=== PATIENT | male | born 1940 | race Caucasian/White ===

== ENCOUNTER 2018-03-20 02:00 | Inpatient (IN) ==
[2018-03-20] MEDS ORDERED: *HR* HYDROcodone/Acet 5/325 mg TABLET PO ONE (03:15)
[2018-03-20] MEDS ORDERED: Ketorolac 15 MG/ML VIAL IVP ONE (03:16)
[2018-03-20] MEDS ORDERED: Orphenadrine 60 MG/2 ML VIAL IV ONE (03:16)
--- NOTE | 2018-03-20 03:17 | Emergency Department Note ---
Disposition Clinical Impression: Intractable low back pain, Lumbar radiculopathy, Bony sclerosis Lumbar canal stenosis Qualifiers: Neurogenic claudication status: unspecified Qualified Code(s): M48.061 - Spinal stenosis, lumbar region without neurogenic claudication Disposition: Admitted As Inpatient Condition: Fair Referrals: Buzz Sanchez MD [Primary Care Provider] - Forms: ED Satisfaction Letter Time of Disposition: 05:35 Back Pain HPI - General Chief Complaint: ED Back Pain/Injury Stated Complaint: rt hip pain down leg Time Seen by Provider: 03/20/18 03:07 Source: patient Limitations: no limitations Nursing Notes Reviewed: Yes Vital Signs Reviewed: Yes - History of Present Illness HPI Narrative: Patient presents to the ED the chief complaint of H medical back pain. Patient states that about 2 days ago he got out of his car to go into work and felt a pain in his right lower back. He has sharp stabbing pains that radiate all the way down into his right foot. No numbness or weakness. No fever. No history of IV drug use. No history of cancer. No chills, chest pain, shortness of breath, abdominal pain, nausea, vomiting, diarrhea, loss of bowel or bladder function, urinary incontinence or retention, rash. States he had sciatica on his left side several years ago and this. This was similar, but is worse. No injury. States he has been unable to sleep. - Related Data Home Medications Medication Instructions Recorded Confirmed Atorvastatin Calcium [Lipitor] 10/05/15 Lisinopril-HCTZ 20-12.5 10/05/15 Multivitamin 10/05/15 10/05/15 glyBURIDE [GlyBURIDE] 10/05/15 Previous Rx's Medication Instructions Recorded Silver Sulfadiazine [Silvadene] 25 gm TP BID #20 cream..g. 08/01/16 Allergies Allergy/AdvReac Type Severity Reaction Status Date / Time metformin AdvReac See Verified 10/05/15 10:41 Comments Review of Systems: As reviewed in the HPI. All other systems reviewed are negative or normal. Past Medical History - Past Medical History Attestation: Yes The following information was validated with the patient. Source: patient Medical history: Reports: diabetes, hypertension Psychiatric history: Reports: no psych history - Social History Smoking Status: Never smoker Smokeless Tobacco Status: No Alcohol use: Reports: none Drug use: Reports: none Physical Exam CONSTITUTIONAL: [well appearing in no acute distress but does appear uncomfortable and in pain] SKIN: [Warm, dry, and intact without rash] EYES: [extraocular movements are grossly intact, clear conjunctiva] HENT: [Normocephalic, atraumatic, moist mucus membranes] NECK: [no obvious swelling, normal range of motion] PULMONARY: [normal chest rise and fall, no respiratory distress or stridor CARDIOVASCULAR: [regular rate, distal extremities are warm and well perfused] GASTROINSTESTINAL: [nondistended, non-tender] GENITOURINARY: [deferred] NEUROLOGIC: [normal speech, moves all extremities, high sensitivity neuro exam, normal. However, patient does have quite significant pain with plantar flexion of the right lower extremity, has right PSIS tenderness that does reproduce his symptoms, full range of motion, but is painful. Very antalgic gait] MUSCULOSKELETAL: [no gross deformities, atraumatic] PSYCHIATRIC: [normal mood and affect] - General Limitations: no limitations General appearance: alert, in no apparent distress Course Course Narrative: Patient presenting with a 48-hour history of atraumatic low back pain. We will get a CT of his lumbar spine and medicate to evaluate for possible malignancy. - Reevaluation(s) Reevaluation #1: CT shows sclerotic foci exactly where patient is tender. Certainly raising concern over cancer. Patient given pain medication with zero relief. Will admit for intractable low back pain, pain management consult and further oncologic workup. Accepted to the hospitalist service. Added on CBC/BMP for admission. Time: 05:33 Vital Signs Temperature 98.0 F 03/20/18 02:03 Pulse Rate 100 03/20/18 02:03 Respiratory Rate 16 03/20/18 02:03 Blood Pressure 165/87 03/20/18 02:03 O2 Sat by Pulse Oximetry 97 03/20/18 02:03 Temperature 98.0 F 03/20/18 02:03 Pulse Rate 100 03/20/18 02:03 Respiratory Rate 16 03/20/18 02:03 Blood Pressure 165/87 03/20/18 02:03 O2 Sat by Pulse Oximetry 97 03/20/18 02:03 Oxygen Delivery Oxygen Delivery Room Air
[2018-03-20] MEDS ORDERED: *HR* HYDROmorphone (PF) 1 MG/ML SYRINGE IVP ONE (05:21)
[2018-03-20] MEDS ORDERED: Dextrose Gel 15 GM/37.5 ML TUBE PO PRN ×3 (05:44→09:00)
[2018-03-20 05:56] LABS: Basophils # 0.1 K/mcL (0.0-0.2); Basophils % 0.5 %; Eosinophils % 0.1 %; Hematocrit 43.7 % (37.5-50.1); Hemoglobin 15.8 g/dL (12.9-16.9); Immature Granulocytes % 0.5 % (0-4); Lymphocytes # 1.2 K/mcL (0.6-4.6); Lymphocytes % 10.4 %; Mean Corpuscular HGB Conc 36.2 g/dL (31.6-35.5); Mean Corpuscular Hemoglobin 30.3 pg (28.0-33.3); Mean Corpuscular Volume 83.9 fL (83.0-100.0); Mean Platelet Volume 8.2 fL (9.4-12.4); Monocytes # 0.9 K/mcL (0.0-1.3); Neutrophils # 8.9 K/mcL (1.6-8.9); Platelet Count 198 K/mcL (140-400); Red Blood Count 5.21 M/mcL (4.19-5.50); Red Cell Distribution Width 12.8 % (11.5-14.5); Segmented Neutrophils % 80.5 %
--- NOTE | 2018-03-20 05:59 | Emergency Department Note ---
Disposition Clinical Impression: Intractable low back pain, Lumbar radiculopathy, Bony sclerosis Lumbar canal stenosis Qualifiers: Neurogenic claudication status: unspecified Qualified Code(s): M48.061 - Spinal stenosis, lumbar region without neurogenic claudication Disposition: Admitted As Inpatient Condition: Fair General Adult HPI - General Chief complaint: ED Back Pain/Injury Stated complaint: rt hip pain down leg Time Seen by Provider: 03/20/18 03:07 Source: patient Limitations: no limitations Nursing Notes Reviewed: Yes Vital Signs Reviewed: Yes - History of Present Illness Pain Scale: 10 - Related Data Home Medications Medication Instructions Recorded Confirmed Atorvastatin Calcium [Lipitor] 10/05/15 Lisinopril-HCTZ 20-12.5 10/05/15 Multivitamin 10/05/15 10/05/15 glyBURIDE [GlyBURIDE] 10/05/15 Previous Rx's Medication Instructions Recorded Silver Sulfadiazine [Silvadene] 25 gm TP BID #20 cream..g. 08/01/16 Allergies Allergy/AdvReac Type Severity Reaction Status Date / Time metformin AdvReac See Verified 10/05/15 10:41 Comments Past Medical History - Past Medical History Medical history: Reports: diabetes, hypertension Psychiatric history: Reports: no psych history - Social History Smoking Status: Never smoker Smokeless Tobacco Status: No Alcohol use: Reports: none Drug use: Reports: none Physical Exam - General Limitations: no limitations General appearance: alert, in no apparent distress Course Vital Signs Temperature 98.0 F 03/20/18 02:03 Pulse Rate 100 03/20/18 02:03 Respiratory Rate 16 03/20/18 02:03 Blood Pressure 165/87 03/20/18 02:03 O2 Sat by Pulse Oximetry 97 03/20/18 02:03 Temperature 98.0 F 03/20/18 02:03 Pulse Rate 100 03/20/18 02:03 Respiratory Rate 16 03/20/18 02:03 Blood Pressure 165/87 03/20/18 02:03 O2 Sat by Pulse Oximetry 97 03/20/18 02:03 Oxygen Delivery Oxygen Delivery Room Air Medical Decision Making - Radiology Data Radiology results reviewed: Yes I reviewed the patient's radiology results. Lumbar Spine CT 03/20/18 03:15 IMPRESSION: 1. Moderate spondylosis, most pronounced at L4-L5. 2. Pelvic sclerotic foci are nonspecific though metastatic disease is one consideration. D/ / Remigio Quarles MD / Remigio Quarles MD Interpreting Provider: Remigio Quarles MD Attestation Statement - Attestation Attestation: I, Kentrell Salvador MD, personally evaluated this patient and discussed their management with the resident physician. I reviewed the resident's note and agree with the documented findings, medical decision making, and plan of care. 78-year-old male presents to the emergency department with a complaint of right lower back pain in the SI joint region which radiates down the right leg to the mid right syed. Symptoms started about 3-4 days ago and have gotten progressively worse. He denies any fall or injury. He has been able to ambulate. No incontinence of stool or urine. No urinary retention. No fever. No abdominal pain. On examination patient is a well-developed well-nourished well-appearing elderly male in no acute distress. He is alert and oriented 3. There is no cyanosis or diaphoresis. Breath sounds are clear and equal bilaterally. Heart regular rate and rhythm. Abdomen soft and nontender with normal bowel sounds. No tenderness over the lumbar spine. There is tenderness over the right SI joint region. No gross focal neurological deficits. CT of the lumbar spine: As above with diffuse disc bulging seen at multiple levels, most pronounced at L4-L5 where there is also central stenosis. Patient received Toradol, Norflex, Percocet, and lidocaine patch while here in the emergency department. He had no improvement in his symptoms with this treatment. The hospitalist, Dr. Leonard, was consulted and accepted admission of the patient for intractable pain.
[2018-03-20] MEDS ORDERED: Insulin LISPRO 300 UNITS/3 ML VIAL SQ SCH (06:00)
[2018-03-20 06:10] LABS: BUN/Creatinine Ratio 17 (6-26); Blood Urea Nitrogen 11 mg/dL (8-23); Calcium 9.5 mg/dL (8.6-10.3); Carbon Dioxide 26 mEq/L (23-29); Chloride 90 mEq/L (98-107); Glucose 183 mg/dL (70-105); Osmolality,Calculated 262 (280-300); Potassium 3.7 mEq/L (3.5-5.1); Sodium 124 mEq/L (136-145); eGFR For Non-African Americans > 60 (> 60)
--- NOTE | 2018-03-20 06:12 | Internal Med History&Physical ---
Date of Encounter: 03/20/18 Time of Encounter: 06:10 Internal Medicine - H&P: HPI Chief complaint: Lower back pain Admitted From: Home Plans for Post Hospital Care: Home History of present illness: Mr. Clark is a 78 year old male with hypertension and diabetes was suffered from lumbago on the past presenting with acute onset right sided lower back pain the commenced yesterday all trying to get out of the car. He describes the pain as sharp and shooting down the side of his leg going towards his mid tibial region and has caused significant ambulatory difficulty. He denies paresthesias and focal weakness. He reports a history of prostate cancer for which his prostate was removed many years ago. No chills, chest pain, shortness of breath, abdominal pain, nausea, vomiting, diarrhea, loss of bowel or bladder function, urinary incontinence or retention, rash. States he had sciatica on his left side several years ago and this. This was similar, but is worse. No injury. States he has been unable to sleep. Past Med Surg Social Fam HX - Past Medical History Medical history: diabetes, hypertension Psychiatric history: no psych history - Social History Smoking Status: Never smoker Smokeless Tobacco Status: No Alcohol use: none Drug use: none Internal Medicine - H&P: Meds Atorvastatin Calcium [Lipitor] 10/05/15 [History] Lisinopril-HCTZ 20-12.5 10/05/15 [History] Multivitamin 10/05/15 [History] glyBURIDE [GlyBURIDE] 10/05/15 [History] Silver Sulfadiazine [Silvadene] 25 gm TP BID #20 cream..g. 08/01/16 [Rx] 3 Allergy/AdvReac Type Severity Reaction Status Date / Time metformin AdvReac See Verified 10/05/15 10:41 Comments All Systems PM: A 10-system review of systems was performed and is negative for pertinent findings except as documented above in the HPI. - Constitutional Vitals: Temp Pulse Resp BP Pulse Ox 98.0 F 100 16 161/99 97 03/20/18 02:03 03/20/18 02:03 03/20/18 05:48 03/20/18 05:48 03/20/18 02:03 Exam: Vitals: Reviewed and seen to be within normal limits General: Well-developed male sitting comfortably in bed in no acute distress Skin: No ulcers or lesions. HEENT: Moist mucous membranes. No conjunctivae pallor. Neck: No lymphadenopathy. No JVD. No carotid bruits. No palpable thyroid. Chest: Normal thoracic expansion. Normal breath sounds. Clear to auscultation. Heart: Normal S1 & S2; rhythmic. No rubs or murmurs. Abdomen: Non-distended, soft and non-tender to palpation. Extremities: No clubbing, cyanosis or edema. No calf tenderness. Normal distal pulses. Lasegue's & Braggard's sign negative on left and right sides. Focal tenderness on palpation on the left sacroiliac region. Neurological: Awake, alert and oriented to person, place and time. No focal deficits. Psych: Affect appropriate. Internal Med - H&P Results - Labs CBC & Chem 7: 03/20/18 05:41 03/20/18 05:41 Labs: Short CBC 03/20/18 Range/Units 05:41 WBC 11.0 (4.3-11.1) K/mcL Hgb 15.8 (12.9-16.9) g/dL Hct 43.7 (37.5-50.1) % Plt Count 198 (140-400) K/mcL Neutrophils # 8.9 (1.6-8.9) K/mcL BMP 03/20/18 05:41 Sodium 124 L Potassium 3.7 Chloride 90 L Carbon Dioxide 26 BUN 11 Creatinine 0.63 L Glucose 183 H Calcium 9.5 - Assessment and plan (1) Intractable low back pain Current Visit: Yes Status: Acute Assessment and plan: Seen to have retrolisthesis at all lumbar levels, round faint sclerotic foci are identified in the sacrum and right iliac bone, degenerative changes and diffuse disc bulging is seen at multiple levels, most pronounced at L4-L5 where there is also central stenosis. These areas correspond with the nerve territory in which he describes the pain. Working diagnosis is sciatica as the cause of his intractable back pain for which reason he is admitted for pain control. -Will place on NSAIDs and opiates as needed. -Given identification of multiple sclerotic foci and reported history of prostate malignancy, will check a screening PSA to ensure there is no residual activity that may be attributable to this. -Physical therapy consultation requested. (2) Hyponatremia Current Visit: Yes Status: Acute Assessment and plan: Possibly associated to diuretic use and compounded by poor oral intake. -Will check urine studies and resuscitate with Iv NS. (3) Hypochloremia Current Visit: Yes Status: Acute Assessment and plan: Likely due to thiazide diuretic coupled with poor oral intake. Will administer IV NS and recheck values. (4) Diabetes Current Visit: Yes Status: Chronic Assessment and plan: Oral agents on hold during hospitalization. Will have q6hr accuchecks and insulin sliding scale. Diabetic diet ordered. Qualifiers: Diabetes mellitus type: type 2 Diabetes mellitus nursing home insulin use: without superintendent container terminal use Diabetes mellitus complication status: without complication Qualified Code(s): E11.9 - Type 2 diabetes mellitus without complications (5) Hypertension Current Visit: Yes Status: Chronic Assessment and plan: Well controlled. Continue Lisinopril. HCTZ on hold for now due to hyponatremia and hypochloremia. Qualifiers: Hypertension type: essential hypertension Qualified Code(s): I10 - Essential (primary) hypertension (6) DVT prophylaxis Current Visit: Yes Status: Acute Assessment and plan: SubQ heparin ordered. - Time Spent With Patient Total time spent is greater than 50% in coordination of care (as documented) at patient's floor/unit and/or counseling patient: 25 - 35 minutes
[2018-03-20] MEDS ORDERED: *HR* OxyCODONE ER (12 HR) 10 MG TABLET PO SCH ×2 (08:00)
[2018-03-20] MEDS ORDERED: D5% in Water 1,000 ML IVC PRN (09:00)
[2018-03-20] MEDS ORDERED: Lisinopril-HCTZ 20-12.5mg TABLET PO SCH (09:00)
[2018-03-20] MEDS ORDERED: *HR* Dextrose 50 % in Water (Syg) 50 ML SYRINGE IVP PRN (09:00)
[2018-03-20] MEDS: Multivit/Ca/Min/Fe/FA 1 TAB TABLET PO SCH (09:42)
[2018-03-20] MEDS: Lisinopril 20 MG TABLET PO SCH (09:43)
[2018-03-20] MEDS: *HR* Heparin 5,000 UNIT/ML VIAL SQ SCH ×3 (09:46→21:01)
--- NOTE | 2018-03-20 10:09 | Event Note ---
Date of Encounter: 03/20/18 Time of Encounter: 08:00 I examined this patient and my medical decision-making was reviewed with the Resident Physician. I agree with the documented findings, disposition and treatment plan as described with any changes as documented below. Patient continues to have low back pain although it is somewhat improved compared to yesterday. It radiates down his right leg. No focal weakness or numbness. No bowel or bladder incontinence. Exam: General appearance: Present: cooperative, A&O X 3, , answers questions appropriately - Neck Neck exam general surgery: Present: supple, trachea midline. Absent: lymphadenopathy - Respiratory Respiratory exam: Present: Breath sounds are normal Absent: accessory muscle use, rales, rhonchi - Cardiovascular Cardiovascular exam: Present: RRR, +S1, +S2. Absent: diastolic murmur, gallop, rubs, systolic murmur - GI/Abdominal GI/Abdominal exam: Present: normal bowel sounds, soft, no peritoneal signs. Absent: distended, tenderness - Back exam: Tenderness over the lower lumbar spine and right paraspinal muscles - Extremities Exam Extremities exam: Present: warm, radial pulses palpable and symmetrical. Absent : calf tenderness, cyanotic, pedal edema - Neurological Exam Neurological exam: Present: alert, oriented X3, no focal deficits. Absent: facial droop, speech deficit (1) Intractable low back pain Current Visit: Yes Status: Acute Assessment and plan: Continue supportive care. PT OT ordered. Pain control. (2) Hyponatremia Current Visit: Yes Status: Acute Assessment and plan: Continue IV hydration. Recheck sodium levels. (3) Hypochloremia Current Visit: Yes Status: Acute Assessment and plan: Continue to hold thiazide diuretic. Recheck basic panel later today. (4) Diabetes Current Visit: Yes Status: Chronic Assessment and plan: Monitor blood sugars. Continue sliding scale and diabetic diet. Qualifiers: Diabetes mellitus type: type 2 Diabetes mellitus residential insulin use: without buttermilk drier operator use Diabetes mellitus complication status: without complication Qualified Code(s): E11.9 - Type 2 diabetes mellitus without complications (5) Hypertension Current Visit: Yes Status: Chronic Assessment and plan: Holding hydrochlorothiazide. Continuing lisinopril. Qualifiers: Hypertension type: essential hypertension Qualified Code(s): I10 - Essential (primary) hypertension (6) DVT prophylaxis Current Visit: Yes Status: Acute Assessment and plan: On subcutaneous heparin
[2018-03-20] MEDS: 0.9 % Sodium Chloride 1,000 ML IVC SCH ×2 (11:08→21:04)
[2018-03-20] MEDS: Insulin LISPRO 300 UNITS/3 ML VIAL SQ SCH ×3 (12:24→21:11)
[2018-03-20 12:27] LABS: BUN/Creatinine Ratio 17 (6-26); Blood Urea Nitrogen 13 mg/dL (8-23); Calcium 9.3 mg/dL (8.6-10.3); Carbon Dioxide 22 mEq/L (23-29); Chloride 90 mEq/L (98-107); Glucose 267 mg/dL (70-105); Osmolality,Calculated 265 (280-300); Sodium 123 mEq/L (136-145); eGFR For Non-African Americans > 60 (> 60)
[2018-03-20] MEDS: Ketorolac 15 MG/ML VIAL IVP PRN ×2 (14:22→21:01)
--- NOTE | 2018-03-20 15:05 | Internal Med Progress Note ---
Date of Encounter: 03/20/18 Time of Encounter: 10:30 - Assessment and plan (1) Intractable low back pain Current Visit: Yes Status: Acute Assessment and plan: Patient has no any bony tenderness and paravertebral muscle tenderness. He is improving with Muscle relaxant and NSAID Now pain is 5-6/10 , better than before We are monitoring closely . (2) Diabetes Current Visit: Yes Status: Chronic Assessment and plan: His latest blood sugar is 183 Hb1AC ordered We are monitoring his blood sugar He is on Insulin human Lispro Qualifiers: Diabetes mellitus type: type 2 Diabetes mellitus [facility] insulin use: without long haul truck driver use Diabetes mellitus complication status: without complication Qualified Code(s): E11.9 - Type 2 diabetes mellitus without complications (3) Hypertension Current Visit: Yes Status: Chronic Assessment and plan: We are continuously monitoring his blood pressure His last BP record : 154/84 He is on Lisinopril 20 mg Qualifiers: Hypertension type: essential hypertension Qualified Code(s): I10 - Essential (primary) hypertension (4) Hyponatremia Current Visit: Yes Status: Acute Assessment and plan: He on normal saline infusion Latest serum Na+ 124 We will be monitoring his Na+ daily (5) Bony sclerosis Current Visit: Yes Status: Acute Assessment and plan: He has incidental finding of neto sclerosis in sacrum and Pelvis/ right Ilium He is a case of Ca prostate and removed prostate a few years back. His current PSA level is 4 He will be advised to review with PCP and/or oncologist in outpatient follow up. - Subjective Interval history: This is the 1st day of admission.A 78 year old male with HTN and DM-2 was presented with with acute onset right sided lower back pain since last 2-3 days and aggravated since yesterday . He developed symptom when He was trying to come out of his car . He describes the pain as sharp and shooting down the side of his leg going towards his mid tibial region and has caused significant ambulatory difficulty. He denies paresthesias and focal weakness. He reports a history of prostate cancer for which his prostate was removed many years ago. He denies chills,fever chest pain, shortness of breath, abdominal pain, nausea, vomiting, diarrhea, loss of bowel or bladder function,saddle area anaesthesia urinary incontinence or retention, rash. He states that he had sciatica on his left side several years ago and he also had same problem in his right leg almost 2 years back , but got better with out much trouble . This was similar, but is worse. He denies any injury or fall. He States he has been unable to sleep due to pain. - Constitutional Vitals: Temp Pulse Resp BP Pulse Ox 97.6 F 80 16 154/85 96 03/20/18 10:16 03/20/18 10:16 03/20/18 10:16 03/20/18 10:16 03/20/18 10:16 - Head Head exam: Present: normal inspection, normocephalic - Respiratory Additional comments: Normal thoracic expansion. Normal breath sounds. Clear to auscultation. - Cardiovascular Additional comments: Normal S1 & S2; rhythmic. No rubs or murmurs. - GI/Abdominal Additional comments: Non-distended, soft and non-tender to palpation., no organomegaly - Back Exam Additional comments: He has no any tenderness in lumbar and thoracic vertebra, no paravertebral muscle tenderness , SLRT negative both side , sensation intact, ankle and knee reflex normal both side - Psychiatric Additional comments: Awake, alert and oriented to person, place and time. No focal deficits. Internal Medicine: Result - Labs CBC & Chem 7: 03/20/18 05:41 03/20/18 15:09 Labs: BMP 03/20/18 11:03 Sodium 123 L Potassium 4.0 Chloride 90 L Carbon Dioxide 22 L BUN 13 Creatinine 0.77 Glucose 267 H Calcium 9.3 Consult Discharge Plan - Plan Referrals: Buzz Sanchez MD [Primary Care Provider] -
[2018-03-20 15:32] LABS: Estimated Average Glucose 160 mg/dl; Hemoglobin A1C 7.2 %
[2018-03-20] MEDS: *HR* OxyCODONE/APAP 5/325 TABLET PO PRN ×2 (16:58→21:00)
[2018-03-20] MEDS: Amoxicillin 500 MG CAPSULE PO SCH (21:02)
[2018-03-21] MEDS: Amoxicillin 500 MG CAPSULE PO SCH ×3 (05:07→21:12)
[2018-03-21] MEDS: *HR* OxyCODONE/APAP 5/325 TABLET PO PRN ×3 (05:11→18:16)
[2018-03-21] MEDS: *HR* Heparin 5,000 UNIT/ML VIAL SQ SCH ×3 (05:15→21:12)
[2018-03-21 07:17] LABS: BUN/Creatinine Ratio 22 (6-26); Blood Urea Nitrogen 17 mg/dL (8-23); Calcium 9.3 mg/dL (8.6-10.3); Carbon Dioxide 29 mEq/L (23-29); Chloride 99 mEq/L (98-107); Glucose 151 mg/dL (70-105); Osmolality,Calculated 276 (280-300); Potassium 4.7 mEq/L (3.5-5.1); Sodium 131 mEq/L (136-145); eGFR For Non-African Americans > 60 (> 60)
[2018-03-21] MEDS: Insulin LISPRO 300 UNITS/3 ML VIAL SQ SCH ×4 (07:33→20:59)
[2018-03-21] MEDS: Multivit/Ca/Min/Fe/FA 1 TAB TABLET PO SCH (09:19)
[2018-03-21] MEDS: Lisinopril 20 MG TABLET PO SCH (09:19)
--- NOTE | 2018-03-21 10:22 | Event Note ---
Date of Encounter: 03/21/18 Time of Encounter: 10:18 78 y/o Male with hx of prostate cancer admitted for sharp right LE pain for one week underwent CT lumbar spine showing two sclerotic lesion, one is sacrum and one in left iliac bone. Patient PSA is also elevated at 4.8 . Due to this primary team called Oncology for recommendations. Patient reports he had full resection of prostate in 2000 at [facility] by urologist. Since then he has not had recurrence. He reports bone pain in his right lower extremity at the mid tibia. Xray of right lower extremity was normal. He reports 2-3 pound weight loss in last 5 months. He denies any other hx of cancer, or family hx of cancer. I talked with Dr. Nugent who stated there is concern for metastic prostate cancer and patient will get a bone scan before discharge and will be setup for outpatient ct guided biopsy of the sclerotic lesion. Patient will also have appointment with Dr. Nugent next week.
[2018-03-21] MEDS ORDERED: Ketorolac 15 MG/ML VIAL IVP PRN (11:56)
--- NOTE | 2018-03-21 14:45 | Discharge Summary ---
- NOTES TO OUTPATIENT PROVIDER Notes to Outpatient Provider: Patient initially was hospitalized here for acute on chronic low back pain when he tried to get out of his car. CT scan of the lumbar spine was done in the ER which showed moderate spondylosis. Patient also had pelvic sclerotic foci. He was treated symptomatically for his back pain and was evaluated by physical therapy and recommended outpatient PT. Patient was also found to be hyponatremic and dehydrated and was given IV fluids with improvement in his sodium levels. He does take lisinopril with hydrochlorothiazide at home. Recommend stopping hydrochlorothiazide at this time. I discussed his case with oncology and PSA was done which was elevated. Patient has a history of prostate cancer and had prostatectomy before. As such there is concern for recurrence of malignancy. Oncology recommended a bone scan and CT guided biopsy which have been scheduled for him as outpatient. At this time he is clinically stable for discharge back home. He will follow up with his primary care provider and [facility] for further management. Date of Encounter: 03/21/18 Time of Encounter: 15:08 - Discharge Diagnosis (1) Intractable low back pain Priority: Primary Status: Acute (2) Bony sclerosis Priority: Secondary Status: Acute (3) Hypertension Priority: Secondary Status: Chronic Qualifiers: Hypertension type: essential hypertension Qualified Code(s): I10 - Essential (primary) hypertension (4) Diabetes Priority: Secondary Status: Chronic Qualifiers: Diabetes mellitus type: type 2 Diabetes mellitus fdc insulin use: without extermination supervisor use Diabetes mellitus complication status: without complication Qualified Code(s): E11.9 - Type 2 diabetes mellitus without complications (5) Hyponatremia Priority: Secondary Status: Acute Hospital course: Mr. Clark is a 78 year old male Patient with history of prostate cancer status post prostatectomy and chronic low back pain, diabetes initially was hospitalized here for acute on chronic low back pain when he tried to get out of his car. CT scan of the lumbar spine was done in the ER which showed moderate spondylosis. Patient also had pelvic sclerotic foci. He was treated symptomatically for his back pain and was evaluated by physical therapy and recommended outpatient PT. Patient was also found to be hyponatremic and dehydrated and was given IV fluids with improvement in his sodium levels. He does take lisinopril with hydrochlorothiazide at home. Recommend stopping hydrochlorothiazide at this time. I discussed his case with oncology and PSA was done which was elevated. Patient has a history of prostate cancer and had prostatectomy before. As such there is concern for recurrence of malignancy. Oncology recommended a bone scan and CT guided biopsy which have been scheduled for him as outpatient. At this time he is clinically stable for discharge back home. He will follow up with his primary care provider and [facility] for further management. Discharge discussed with: patient, family, nurse, social work, case management, design studio consultant - Time Spent with Patient Total time spent providing and/or coordinating discharge services: Greater than 30 minutes (35 min) - Discharge Medications Prescriptions: OxyCODONE/APAP 5/325 [Percocet 5/325 MG] 1 each PO Q6HR PRN 5 Days #14 tablet PRN Reason: Severe Pain Cyclobenzaprine [Flexeril] 10 mg PO TID #20 tablet Lisinopril [Zestril] 20 mg PO DAILY #30 tablet Home Medications: Atorvastatin [Lipitor] 10 mg PO HS 03/20/18 [History] glyBURIDE [GlyBURIDE] 2.5 mg PO BID 03/20/18 [History] Amoxicillin [Amoxil] 500 mg PO Q8H capsule 03/21/18 [Rx] Cyclobenzaprine [Flexeril] 10 mg PO TID #20 tablet 03/21/18 [Rx] Lisinopril [Zestril] 20 mg PO DAILY #30 tablet 03/21/18 [Rx] OxyCODONE/APAP 5/325 [Percocet 5/325 MG] 1 each PO Q6HR PRN 5 Days #14 tablet [Rx] Allergies/Adverse Reactions: 3 Allergy/AdvReac Type Severity Reaction Status Date / Time metformin AdvReac See Verified 10/05/15 10:41 Comments Date of admission: 03/20/18 09:56 Primary care physician: Buzz Sanchez MD Consults: 03/20/18 06:29 PT [Consult to Physical Therapy] [CONS] Routine Comment: Evaluate, develop and implement POC Reason for Consult: Acute lumbago due to sciatica. Does patient have active BEDREST order?: No Is patient medically & hemodynamically stable?: Yes Patient assessed for mobility or mobilized this visit?: Yes Discharging clinician: Desiree Ladd Anticipated date of discharge: 03/21/18 - Constitutional Vitals: Temp Pulse Resp BP Pulse Ox 97.4 F L 101 16 135/81 97 03/21/18 10:28 03/21/18 10:28 03/21/18 10:28 03/21/18 10:28 03/21/18 10:28 General appearance: Present: cooperative, A&O X 3, answers questions appropriately - Neck Neck exam general surgery: Present: supple, trachea midline. Absent: lymphadenopathy - Respiratory Respiratory exam: Present: CTAB. Absent: accessory muscle use, rales, rhonchi, wheezes - Cardiovascular Cardiovascular exam: Present: RRR, +S1, +S2. Absent: diastolic murmur, gallop, rubs, systolic murmur - GI/Abdominal GI/Abdominal exam: Present: normal bowel sounds, soft, no peritoneal signs. Absent: distended, tenderness - Extremities Exam Extremities exam: Present: warm, radial pulses palpable and symmetrical. Absent : calf tenderness, cyanotic, pedal edema Additional comments: right syed tenderness - Neurological Exam Neurological exam: Present: alert, CN II-XII intact, oriented X3, no focal deficits. Absent: facial droop, speech deficit - Skin Skin exam: Present: dry, intact - Patient Status Disposition: Home, Self-Care Condition: Good Functional capacity at discharge: uses cane/walker Overall status at discharge: patient is progressing back to baseline - Ambulatory Orders Ambulatory Orders: CT guided biopsy [CT] Time Frame: 1 Week, Facility: [facility], Location: Radiology Consult to Physical Therapy [CONS] Time Frame: 2 Days, Facility: [facility], Location: Rehab Services NM bone scan whole body [NM] Time Frame: 1 Week, Facility: [facility], Location: Radiology - Discharge Instructions Instructions: Diabetes Mellitus Type 2 in Adults (DC), Chronic Hypertension (DC ) Follow Up With: Buzz Sanchez MD [Primary Care Provider] - 03/24/18 9:45 am Alek Nugent MD [Partnered Physician] - (in 1 -2 weeks) - Diet and Activity Activity: as per physical therapy, increase activity as tolerated Diet: diabetic diet, low salt diet
[2018-03-22] MEDS: *HR* OxyCODONE/APAP 5/325 TABLET PO PRN (00:13)
[2018-03-22] MEDS: Amoxicillin 500 MG CAPSULE PO SCH (05:17)
[2018-03-22] MEDS: *HR* Heparin 5,000 UNIT/ML VIAL SQ SCH (05:19)
[2018-03-22 07:11] VITALS: BP 165/91
[2018-03-22] MEDS: Insulin LISPRO 300 UNITS/3 ML VIAL SQ SCH (07:28)
[2018-03-22] MEDS: Lisinopril 20 MG TABLET PO SCH (07:47)
[2018-03-22] MEDS: Multivit/Ca/Min/Fe/FA 1 TAB TABLET PO SCH (07:47)
--- NOTE | 2018-03-22 07:59 | Event Note ---
Date of Encounter: 03/22/18 Time of Encounter: 07:59 Patient stayed in hospital overnight as he was concerned that he was ready to go home. He feels better today and wants to go home now. Noted his blood pressure has been elevated. We will start him on carvedilol. Hydrochlorothiazide has been stopped due to patient's hyponatremia and dehydration.
== END 2018-03-22 08:15 | disposition home or self-care (01) | DRG 552 ==
LOC: EMEROO 02:00 → 3ANU 02:00 → SUATTDRO 05:38 → 3ANU 06:10
PROVIDERS: ADMIT Student in an Organized Health Care Education/Training Program; ATTEND Internal Medicine

== ENCOUNTER 2018-03-27 10:10 | Inpatient (IN) ==
[2018-03-27 11:03] LABS: Basophils % 0.2 %; Eosinophils % 0.1 %; Hematocrit 43.1 % (37.5-50.1); Hemoglobin 15.7 g/dL (12.9-16.9); Immature Granulocytes % 0.8 % (0-4); Lymphocytes # 1.8 K/mcL (0.6-4.6); Lymphocytes % 12.4 %; Mean Corpuscular HGB Conc 36.4 g/dL (31.6-35.5); Mean Corpuscular Hemoglobin 30.3 pg (28.0-33.3); Mean Corpuscular Volume 83.2 fL (83.0-100.0); Mean Platelet Volume 8.5 fL (9.4-12.4); Monocytes # 1.8 K/mcL (0.0-1.3); Monocytes % 12.6 %; Neutrophils # 10.7 K/mcL (1.6-8.9); Platelet Count 236 K/mcL (140-400); Red Blood Count 5.18 M/mcL (4.19-5.50); Red Cell Distribution Width 12.9 % (11.5-14.5); Segmented Neutrophils % 73.9 %
--- NOTE | 2018-03-27 11:08 | Emergency Department Note ---
Disposition Clinical Impression: Hyponatremia, Elevated lipase Disposition: Admitted As Inpatient Recheck wound or abnormal lab - General Chief Complaint: ED Recheck/Abnormal Lab/Rx Stated Complaint: abnormal lab results sent by Time Seen by Provider: 03/27/18 10:19 Source: patient, family Mode of arrival: private vehicle Limitations: no limitations Nursing Notes Reviewed: Yes Vital Signs Reviewed: Yes - History of Present Illness HPI Narrative: 78-year-old male history of recent sciatica treated inpatient who presents to the ER with a complaint of abnormal labs. He saw his primary care provider a few days ago for follow-up hospital. He went again today because he was having some lower extremity swelling. The concern was that maybe he was volume overloaded from his recent admission. They checked labs today and he was called because his sodium was critically low. He denies a prior history of this previously. Denies any excessive fluid ingestions. Recent medication changes include prednisone and Percocet as well as starting 40 mg of oral Lasix since . He denies any exertional symptoms, chest pain, dyspnea, orthopnea. No prior history of CAD, CHF. No other complaints. Pt Subjective Complaint: abnormal lab(s) Initial Visit (ago): hour(s) Symptoms Since Prior Visit: no new symptoms Context: called for abnormal lab result Associated symptoms: other (Lower extremity swelling) - Related Data Home Medications Medication Instructions Recorded Confirmed glyBURIDE [GlyBURIDE] 2.5 mg PO BID 03/20/18 03/27/18 Atorvastatin Calcium [Lipitor] 20 mg PO QPM 03/27/18 03/27/18 Furosemide [Lasix] 20 mg PO DAILY 03/27/18 03/27/18 Lisinopril-HCTZ 20-12.5 [Prinzide 1 tab PO BID 03/27/18 03/27/18 20-12.5] Potassium Chloride [Klor-Con 10] 10 meq PO DAILY 03/27/18 03/27/18 Previous Rx's Medication Instructions Recorded Cyclobenzaprine [Flexeril] 10 mg PO TID #20 tablet 03/21/18 OxyCODONE/APAP 5/325 [Percocet 1 each PO Q6HR PRN 5 Days #14 03/21/18 5/325 MG] tablet Carvedilol 3.125 mg PO BID #60 tab 03/22/18 Allergies Allergy/AdvReac Type Severity Reaction Status Date / Time metformin AdvReac See Verified 10/05/15 10:41 Comments All systems ED: reviewed and negative except as stated. Constitutional: Denies: fever Cardiovascular: Denies: chest pain, palpitations, dyspnea on exertion, orthopnea Respiratory: Denies: dyspnea Gastrointestinal: Denies: abdominal pain, nausea, vomiting Past Medical History - Past Medical History Attestation: Yes The following information was validated with the patient. Source: patient Medical history: Reports: diabetes, hypertension Psychiatric history: Reports: no psych history - Social History Smoking Status: Never smoker Smokeless Tobacco Status: No Alcohol use: Reports: none Drug use: Reports: none Physical Exam - General Limitations: no limitations General appearance: alert, in no apparent distress - Head Head exam: atraumatic, normocephalic - Eye Eye exam: Present: normal appearance - ENT ENT exam: normal exam - Neck Neck exam: Present: normal inspection - Chest Chest inspection: Present: normal inspection, symmetric chest wall rise - Respiratory Respiratory exam: Present: normal lung sounds bilaterally - Cardiovascular Cardiovascular exam: Present: regular rate, normal rhythm, normal heart sounds - Abdominal Exam Abdominal exam: Present: soft, Non-Tender. Absent: tenderness, distention, rigidity - Expanded Lower Extremity Exam Hip/Pelvis exam: Present: normal inspection, full ROM Upper leg exam: Present: normal inspection, full ROM Knee exam: Present: normal inspection, full ROM Lower leg exam: Present: normal inspection, full ROM, swelling (Bilateral lower extremity nonpitting edema) Ankle exam: Present: normal inspection, full ROM Foot/toe exam: Present: normal inspection, full ROM - Skin Skin exam: Present: warm, dry Course Course Narrative: Patient seen and examined. Vital signs reviewed. Reviewed his sodium this morning which was 119. Plan to recheck as well as EKG, chest x-ray, BNP. Likely secondary to his recent diuretic use. Plan for admission for severe hyponatremia. - Reevaluation(s) Reevaluation #1: Discussed results of imaging with the patient. Agreeable with plan. - Consultations Consultation #1: I discussed this case with the on-call commercial fisher . Discussed patient's history labs and imaging. Agreeable to see the patient in consultation. Vital Signs Temperature 98.7 F 03/27/18 10:11 Pulse Rate 100 03/27/18 10:11 Respiratory Rate 16 03/27/18 10:11 Blood Pressure 122/77 03/27/18 10:11 O2 Sat by Pulse Oximetry 100 03/27/18 10:11 Temperature 98.7 F 03/27/18 10:20 Pulse Rate 108 03/27/18 14:43 Respiratory Rate 20 03/27/18 14:43 Blood Pressure 111/68 03/27/18 14:43 O2 Sat by Pulse Oximetry 100 03/27/18 14:43 Oxygen Delivery Oxygen Delivery Room Air Recheck wound or abnormal lab - MDM Narrative Medical decision making narrative: 78-year-old male found to have hyponatremia this morning. Asymptomatic from that perspective. Incisional finding of elevated lipase with CT imaging with questionable pseudo-cyst. Admitted to the hospitalist service for further evaluation. - Lab Data Lab results reviewed: Yes I reviewed the patient's lab results. Result diagrams: 03/27/18 10:41 03/27/18 10:41 Lab Results 03/27/18 03/27/18 03/27/18 Range/Units 10:41 10:41 10:56 WBC 14.5 H (4.3-11.1) K/mcL RBC 5.18 (4.19-5.50) M/mcL Hgb 15.7 (12.9-16.9) g/dL Hct 43.1 (37.5-50.1) % MCV 83.2 (83.0-100.0) fL MCH 30.3 (28.0-33.3) pg MCHC 36.4 H (31.6-35.5) g/dL RDW 12.9 (11.5-14.5) % Plt Count 236 (140-400) K/mcL MPV 8.5 L (9.4-12.4) fL Immature Gran % 0.8 (0-4) % Seg Neutrophils % 73.9 % Lymphocytes % 12.4 % Monocytes % 12.6 % Eosinophils % 0.1 % Basophils % 0.2 % Neutrophils # 10.7 H (1.6-8.9) K/mcL Lymphocytes # 1.8 (0.6-4.6) K/mcL Monocytes # 1.8 H (0.0-1.3) K/mcL Eosinophils # 0.0 (0.0-0.6) K/mcL Basophils # 0.0 (0.0-0.2) K/mcL Sodium 120 L* (136-145) mEq/L Potassium 3.3 L (3.5-5.1) mEq/L Chloride 81 L (98-107) mEq/L Carbon Dioxide 31 H (23-29) mEq/L BUN 26 H (8-23) mg/dL Creatinine 0.97 (0.70-1.30) mg/dL Est GFR ( Amer) > 60 (> 60) Est GFR (Non-Af Amer) > 60 (> 60) BUN/Creatinine Ratio 27 H (6-26) Glucose 205 H (70-105) mg/dL Calculated Osmolality 261 L (280-300) Calcium 9.6 (8.6-10.3) mg/dL Phosphorus 3.0 (2.7-4.5) mg/dL Magnesium 1.9 (1.6-2.6) mg/dL Total Bilirubin 0.9 (0.3-1.0) mg/dL Direct Bilirubin 0.2 (0.0-0.2) mg/dL Indirect Bilirubin 0.7 (0.0-1.2) mg/dL AST 27 (13-39) Units/L ALT 38 (7-52) Units/L Alkaline Phosphatase 81 (34-104) Units/L B-Natriuretic Peptide 37 (Less than 100) pg/mL Serum Total Protein 6.8 (6.4-8.9) g/dL Albumin 4.4 (3.5-5.7) g/dL Globulin 2.4 (2.4-3.5) g/dL Albumin/Globulin Ratio 1.8 (1.1-2.2) Lipase 415 H (11-82) Units/L TSH 2.356 (0.340-5.600) mcIU/mL Urine Color (Yellow) Urine Clarity (Clear) Urine pH (5.0-8.0) pH Units Ur Specific Julian (1.010-1.025) Urine Protein (Neg-Trace) mg/dL Urine Glucose (UA) (Normal) mg/dL Urine Ketones (Negative) mg/dL Urine Blood (Negative) Urine Nitrite (Negative) Urine Bilirubin (Negative) Urine Urobilinogen (Normal) mg/dL Ur Leukocyte Esterase (Negative) Ur Culture Indicated? (NO) Urine Sodium mEq/L 03/27/18 03/27/18 Range/Units 11:44 11:44 WBC (4.3-11.1) K/mcL RBC (4.19-5.50) M/mcL Hgb (12.9-16.9) g/dL Hct (37.5-50.1) % MCV (83.0-100.0) fL MCH (28.0-33.3) pg MCHC (31.6-35.5) g/dL RDW (11.5-14.5) % Plt Count (140-400) K/mcL MPV (9.4-12.4) fL Immature Gran % (0-4) % Seg Neutrophils % % Lymphocytes % % Monocytes % % Eosinophils % % Basophils % % Neutrophils # (1.6-8.9) K/mcL Lymphocytes # (0.6-4.6) K/mcL Monocytes # (0.0-1.3) K/mcL Eosinophils # (0.0-0.6) K/mcL Basophils # (0.0-0.2) K/mcL Sodium (136-145) mEq/L Potassium (3.5-5.1) mEq/L Chloride (98-107) mEq/L Carbon Dioxide (23-29) mEq/L BUN (8-23) mg/dL Creatinine (0.70-1.30) mg/dL Est GFR ( Amer) (> 60) Est GFR (Non-Af Amer) (> 60) BUN/Creatinine Ratio (6-26) Glucose (70-105) mg/dL Calculated Osmolality (280-300) Calcium (8.6-10.3) mg/dL Phosphorus (2.7-4.5) mg/dL Magnesium (1.6-2.6) mg/dL Total Bilirubin (0.3-1.0) mg/dL Direct Bilirubin (0.0-0.2) mg/dL Indirect Bilirubin (0.0-1.2) mg/dL AST (13-39) Units/L ALT (7-52) Units/L Alkaline Phosphatase (34-104) Units/L B-Natriuretic Peptide (Less than 100) pg/mL Serum Total Protein (6.4-8.9) g/dL Albumin (3.5-5.7) g/dL Globulin (2.4-3.5) g/dL Albumin/Globulin Ratio (1.1-2.2) Lipase (11-82) Units/L TSH (0.340-5.600) mcIU/mL Urine Color Yellow (Yellow) Urine Clarity Clear (Clear) Urine pH 6.5 (5.0-8.0) pH Units Ur Specific Julian 1.015 (1.010-1.025) Urine Protein Negative (Neg-Trace) mg/dL Urine Glucose (UA) 100 H (Normal) mg/dL Urine Ketones Negative (Negative) mg/dL Urine Blood Negative (Negative) Urine Nitrite Negative (Negative) Urine Bilirubin Negative (Negative) Urine Urobilinogen Normal (Normal) mg/dL Ur Leukocyte Esterase Negative (Negative) Ur Culture Indicated? NO (NO) Urine Sodium 19.9 mEq/L - Radiology Data Radiology results reviewed: Yes I reviewed the patient's radiology results. Chest X-Ray 03/27/18 10:56 IMPRESSION: 1. No active pulmonary disease with no evidence for congestive heart failure. D/ / Popeye Thomas MD / Popeye hTomas MD Interpreting Provider: Popeye Thomas MD Abdomen/Pelvis CT 03/27/18 12:33 IMPRESSION: 1. No acute abnormality seen in the abdomen or pelvis 2. 28 mm rounded fluid attenuating lesion associated with the body of the pancreas. Calcifications are seen in this region suggesting previous pancreatitis. This could represent a pancreatic pseudocyst. An ultrasound is suggested for further evaluation 3. Normal appearing gallbladder 4. Normal appearing appendix 5. No obstructive uropathy. Small bladder diverticulum seen on the left side D/ / Shyam Del Rosario MD / Shyam Del Rosario MD Interpreting Provider: Shyam Del Rosario MD - EKG Data EKG attestation: Yes I reviewed and interpreted this EKG. EKG results narrative: EKG demonstrates sinus rhythm rate 96 bpm. Left axis deviation. Normal intervals. Normal R-wave progression. No gross ST elevations or depressions. No acute ischemic findings. S.B.A.R. - Mirna Situation: Demographics, MOA Background: Presenting Complaint, Relevant PMH, Meds, & Allergies Assessment: Course and respsone to treatment, Exam Concerns, Patient/Family Expectation, Pertinant Lab Results Recommendation: Barrier(s) to disposition, Recommendation based on pending studies, treatments, or consults Mirna Report Given to: Dr. Coley/Lalo Bradley Repor Time: 14:43
[2018-03-27 11:27] LABS: Alanine Aminotransferase 38 Units/L (7-52); Albumin 4.4 g/dL (3.5-5.7); Albumin/Globulin Ratio 1.8 (1.1-2.2); Alkaline Phosphatase 81 Units/L (34-104); Aspartate Amino Transferase 27 Units/L (13-39); BUN/Creatinine Ratio 27 (6-26); Bilirubin,Direct 0.2 mg/dL (0.0-0.2); Bilirubin,Indirect 0.7 mg/dL (0.0-1.2); Bilirubin,Total 0.9 mg/dL (0.3-1.0); Blood Urea Nitrogen 26 mg/dL (8-23); Calcium 9.6 mg/dL (8.6-10.3); Carbon Dioxide 31 mEq/L (23-29); Chloride 81 mEq/L (98-107); Globulin 2.4 g/dL (2.4-3.5); Glucose 205 mg/dL (70-105); Lipase 415 Units/L (11-82); Magnesium 1.9 mg/dL (1.6-2.6); Osmolality,Calculated 261 (280-300); Potassium 3.3 mEq/L (3.5-5.1); Sodium 120 mEq/L (136-145); Total Protein 6.8 g/dL (6.4-8.9); eGFR For Non-African Americans > 60 (> 60)
[2018-03-27 11:36] LABS: Thyroid Stimulating Hormone 2.356 mcIU/mL (0.340-5.600)
--- NOTE | 2018-03-27 11:44 | Emergency Department Note ---
Disposition Clinical Impression: Hyponatremia Disposition: Admitted As Inpatient Referrals: Buzz Sanchez MD [Primary Care Provider] - Forms: ED Satisfaction Letter General Adult HPI - General Chief complaint: ED Recheck/Abnormal Lab/Rx Stated complaint: abnormal lab results sent by Time Seen by Provider: 03/27/18 10:19 Source: patient, family Mode of arrival: private vehicle Limitations: no limitations - History of Present Illness Pain Scale: 0 - Related Data Home Medications Medication Instructions Recorded Confirmed glyBURIDE [GlyBURIDE] 2.5 mg PO BID 03/20/18 03/27/18 Atorvastatin Calcium [Lipitor] 20 mg PO QPM 03/27/18 03/27/18 Furosemide [Lasix] 20 mg PO DAILY 03/27/18 03/27/18 Lisinopril-HCTZ 20-12.5 [Prinzide 1 tab PO BID 03/27/18 03/27/18 20-12.5] Potassium Chloride [Klor-Con 10] 10 meq PO DAILY 03/27/18 03/27/18 Previous Rx's Medication Instructions Recorded Cyclobenzaprine [Flexeril] 10 mg PO TID #20 tablet 03/21/18 OxyCODONE/APAP 5/325 [Percocet 1 each PO Q6HR PRN 5 Days #14 03/21/18 5/325 MG] tablet Carvedilol 3.125 mg PO BID #60 tab 03/22/18 Allergies Allergy/AdvReac Type Severity Reaction Status Date / Time metformin AdvReac See Verified 10/05/15 10:41 Comments Constitutional: Denies: fever Cardiovascular: Denies: chest pain, palpitations, dyspnea on exertion, orthopnea Respiratory: Denies: dyspnea Gastrointestinal: Denies: abdominal pain, nausea, vomiting Past Medical History - Past Medical History Medical history: Reports: diabetes, hypertension Psychiatric history: Reports: no psych history - Social History Smoking Status: Never smoker Smokeless Tobacco Status: No Alcohol use: Reports: none Drug use: Reports: none Physical Exam - General Limitations: no limitations General appearance: alert, in no apparent distress Course Vital Signs Temperature 98.7 F 03/27/18 10:11 Pulse Rate 100 03/27/18 10:11 Respiratory Rate 16 03/27/18 10:11 Blood Pressure 122/77 03/27/18 10:11 O2 Sat by Pulse Oximetry 100 03/27/18 10:11 Temperature 98.7 F 03/27/18 10:20 Pulse Rate 100 03/27/18 10:20 Respiratory Rate 16 03/27/18 10:20 Blood Pressure 122/77 03/27/18 10:20 O2 Sat by Pulse Oximetry 03/27/18 10:20 Oxygen Delivery Oxygen Delivery Room Air Medical Decision Making - Lab Data Result diagrams: 03/27/18 10:41 03/27/18 10:41 Lab Results 03/27/18 03/27/18 Range/Units 10:41 10:41 WBC 14.5 H (4.3-11.1) K/mcL RBC 5.18 (4.19-5.50) M/mcL Hgb 15.7 (12.9-16.9) g/dL Hct 43.1 (37.5-50.1) % MCV 83.2 (83.0-100.0) fL MCH 30.3 (28.0-33.3) pg MCHC 36.4 H (31.6-35.5) g/dL RDW 12.9 (11.5-14.5) % Plt Count 236 (140-400) K/mcL MPV 8.5 L (9.4-12.4) fL Immature Gran % 0.8 (0-4) % Seg Neutrophils % 73.9 % Lymphocytes % 12.4 % Monocytes % 12.6 % Eosinophils % 0.1 % Basophils % 0.2 % Neutrophils # 10.7 H (1.6-8.9) K/mcL Lymphocytes # 1.8 (0.6-4.6) K/mcL Monocytes # 1.8 H (0.0-1.3) K/mcL Eosinophils # 0.0 (0.0-0.6) K/mcL Basophils # 0.0 (0.0-0.2) K/mcL Sodium 120 L* (136-145) mEq/L Potassium 3.3 L (3.5-5.1) mEq/L Chloride 81 L (98-107) mEq/L Carbon Dioxide 31 H (23-29) mEq/L BUN 26 H (8-23) mg/dL Creatinine 0.97 (0.70-1.30) mg/dL Est GFR ( Amer) > 60 (> 60) Est GFR (Non-Af Amer) > 60 (> 60) BUN/Creatinine Ratio 27 H (6-26) Glucose 205 H (70-105) mg/dL Calculated Osmolality 261 L (280-300) Calcium 9.6 (8.6-10.3) mg/dL Phosphorus 3.0 (2.7-4.5) mg/dL Magnesium 1.9 (1.6-2.6) mg/dL Total Bilirubin 0.9 (0.3-1.0) mg/dL Direct Bilirubin 0.2 (0.0-0.2) mg/dL Indirect Bilirubin 0.7 (0.0-1.2) mg/dL AST 27 (13-39) Units/L ALT 38 (7-52) Units/L Alkaline Phosphatase 81 (34-104) Units/L Serum Total Protein 6.8 (6.4-8.9) g/dL Albumin 4.4 (3.5-5.7) g/dL Globulin 2.4 (2.4-3.5) g/dL Albumin/Globulin Ratio 1.8 (1.1-2.2) Lipase 415 H (11-82) Units/L TSH 2.356 (0.340-5.600) mcIU/mL Attestation Statement - Attestation Attestation: I examined this patient and my medical decision-making was reviewed with the Resident Physician. I agree with the documented findings, disposition and treatment plan as described except to the extent set forth below. 78 yo M here for hyponatremia. Recheck showed a sodium level of 120. It was 119 earlier today. Patient will need to be readmitted as he is at risk for seizures. Continue workup for hyponatremia. He recently been on prednisone for sciatica. He was also on Lasix. He is hemodynamically stable. No acute distress.
[2018-03-27 12:02] LABS: Bilirubin,Urine Negative (Negative); Blood,Urine Negative (Negative); Clarity,Urine Clear (Clear); Color,Urine Yellow (Yellow); Glucose,Urine (UA) 100 mg/dL (Normal); Ketones,Urine Negative (Negative); Leukocyte Esterase,Urine Negative (Negative); Nitrite,Urine Negative (Negative); PH,Urine 6.5 pH Units (5.0-8.0); Protein,Urine Negative (Neg-Trace); Specific Gravity,Urine 1.015 (1.010-1.025); Urobilinogen,Urine Normal (Normal)
[2018-03-27] MEDS ORDERED: Isovue-370 500 ML INFUS..BTL IV ONE (12:33)
[2018-03-27] MEDS ORDERED: OXYCODONE Oral CONC 10 MG/0.5 ML ORAL.SYG SL PRN (16:08)
[2018-03-27] MEDS ORDERED: Naloxone 0.4 MG/ML INJ IVP PRN (16:08)
[2018-03-27] MEDS ORDERED: Ondansetron 4 MG/2 ML VIAL IVP PRN (16:08)
[2018-03-27] MEDS ORDERED: *HR* Dextrose 50 % in Water (Syg) 50 ML SYRINGE IVP PRN (16:18)
[2018-03-27] MEDS ORDERED: Dextrose Gel 15 GM/37.5 ML TUBE PO PRN ×2 (16:18)
[2018-03-27] MEDS ORDERED: D5% in Water 1,000 ML IVC PRN (16:18)
--- NOTE | 2018-03-27 16:44 | Internal Med History&Physical ---
<Benjamin Pascual R - Last Filed: 03/27/18 17:06> Date of Encounter: 03/27/18 Time of Encounter: 03:50 Internal Medicine - H&P: HPI Chief complaint: Abnormal Labs Admitted From: Home History of present illness: Mr. Clark is a 78 year old male with history of DM, HTN, prostate cancer s/p prostatectomy, who presents with hyponatremia. Patient was recently admitted 03/20 -03/21 for sciatica. He was found to be hyponatremic and given IVF with correction in Na. He was discharged with instructions to just take Lisinopril, but he continued to take Lisinopril-HCTZ. He also developed LE edema and was started on Lasix 20mg daily on 03/23, which increased to 20mg BID on 03/25. Despite being on lasix he reports that he does not have frequent urination. He presented to his PCP for follow up on 03/27 and was found to be hyponatremic (120 ) and was sent to the ED. Patient usually does not drink any water throughout the day, he instead drinks 6 cans of pepsi during the day and 1 liter at night. In the ED a comprehensive lab workup was ordered. He was found to have elevated lipase 415, and CT abdomen found pancreatic pseudocyst. Patient reports nausea, decreased appetitie, and heartburn for the 3 days prior to admission. Denies any abdominal pain, vomiting, diarrhea, hematochezia, melena, change in stool caliber, dysuria, hematuria, or history of pancreatic issues. Reports a previous colonoscopy with only a few polyps found, unsure of the year. Patient also complains of sinus congestion with foul smelling yellow mucous for the past 2 weeks. Last week he was prescribed amoxicillin for presumed sinus infection but he did not fill the prescription. Denies fevers or chills. Denies dyspnea, cough, or chest pain. Past Med Surg Social Fam HX - Past Medical History Medical history: diabetes, hypertension Additional medical history: prostate cancer Psychiatric history: no psych history - Past Surgical History Surgical History: prostatectomy Additional surgical history: prostate surgery, hernia surgery, sinus surgery - Social History Smoking Status: Never smoker Smokeless Tobacco Status: No Alcohol use: none Drug use: none - Family History Brother Hx Family Genitourinary Disorders: Yes (prostate cancer) Father Hx Family Cardiac Disorders: Yes (CAD) Mother Hx Family Endocrine Disorder: Yes (diabetes) Internal Medicine - H&P: Meds glyBURIDE [GlyBURIDE] 2.5 mg PO BID 03/20/18 [History] Cyclobenzaprine [Flexeril] 10 mg PO TID #20 tablet 03/21/18 [Rx] OxyCODONE/APAP 5/325 [Percocet 5/325 MG] 1 each PO Q6HR PRN 5 Days #14 tablet [Rx] Carvedilol 3.125 mg PO BID #60 tab 03/22/18 [Rx] Atorvastatin Calcium [Lipitor] 20 mg PO QPM 03/27/18 [History] Furosemide [Lasix] 20 mg PO DAILY 03/27/18 [History] Lisinopril-HCTZ 20-12.5 [Prinzide 20-12.5] 1 tab PO BID 03/27/18 [History] Potassium Chloride [Klor-Con 10] 10 meq PO DAILY 03/27/18 [History] 3 Allergy/AdvReac Type Severity Reaction Status Date / Time metformin AdvReac See Verified 10/05/15 10:41 Comments All Systems PM: A 10-system review of systems was performed and is negative for pertinent findings except as documented above in the HPI. - Constitutional Vitals: Temp Pulse Resp BP Pulse Ox 98.2 F 108 20 135/77 94 03/27/18 16:08 03/27/18 14:43 03/27/18 14:43 03/27/18 16:08 03/27/18 16:08 General appearance: Present: A&O X 3, no acute distress, answers questions appropriately Exam: GEN: No acute distress, A&O3 HEENT: Atraumatic, normocephalic, erythematous nasal mucosa, pupils symmetric, sclera white, conjunctiva pink HEART: Tachycardia, normal S1 and S2, no murmurs LUNGS: Clear to auscultation bilaterally, no wheezes, rhonchi, or crackles ABD: Soft, nontender, nondistended, bowel sounds present, no organomegaly noted EXT: No edema noted, pulses 2/4 NEURO: No focal deficits, cooperative with exam SKIN: appears dry, no rashes or lesions Internal Med - H&P Results - Labs CBC & Chem 7: 03/27/18 10:41 03/27/18 10:41 - Assessment and plan (1) Hyponatremia Current Visit: Yes Status: Acute Assessment and plan: Asymptomatic. Hypotonic hypovolemic hyponatremia secondary to diuretic use ( lasix and HCTZ) Patient does not look fluid overload, no LE edema, also does not drink water on a daily basis Sodium 120 upon admission, SOsm 261, Jose 19.9, TSH normal Hold both diuretics Replace K IV fluids - normal saline 100ml/hr - goal correction < 8 meq/day Q6H sodium checks (2) Pancreatic pseudocyst Current Visit: Yes Status: Acute Assessment and plan: Incidental finding on CT Unclear etiology - no history of pancreatitis GI consulted - appreciate recommendations Will order MRCP (3) Elevated lipase Current Visit: Yes Status: Acute Assessment and plan: Elevated lipase 415, pancreatic pseudocyst on abdominal CT Patient denies abdominal pain, but has nausea and decreased appetite Benign abdominal exam. No hx of alcohol use Start IVF, NPO, nausea control, and GI consult Monitor lipase (4) Diabetes Current Visit: No Status: Chronic Assessment and plan: Last A1c 7.2%. On glyburide at home. Allergic to metformin Low dose SSI and Q6H accuchecks Qualifiers: Diabetes mellitus type: type 2 Diabetes mellitus ferry terminal supervisor insulin use: without ferry terminal supervisor use Diabetes mellitus complication status: without complication Qualified Code(s): E11.9 - Type 2 diabetes mellitus without complications (5) Hypertension Current Visit: No Status: Chronic Assessment and plan: Normotensive currently, mild tachycardia Hold PO meds for now - PRN metoprolol Qualifiers: Hypertension type: essential hypertension Qualified Code(s): I10 - Essential (primary) hypertension (6) DVT prophylaxis Current Visit: Yes Status: Acute Assessment and plan: Subq heparin - Time Spent With Patient Total time spent is greater than 50% in coordination of care (as documented) at patient's floor/unit and/or counseling patient: <Adelaide May - Last Filed: 03/27/18 18:12> Date of Encounter: 03/27/18 Internal Medicine - H&P: HPI History of present illness: Mr. Clark is a 78 year old male All Systems PM: A 10-system review of systems was performed and is negative for pertinent findings except as documented above in the HPI. - Constitutional Vitals: Temp Pulse Resp BP Pulse Ox 98.2 F 108 20 135/77 94 03/27/18 16:08 03/27/18 14:43 03/27/18 14:43 03/27/18 16:08 03/27/18 16:08 Internal Med - H&P Results - Labs CBC & Chem 7: 03/27/18 10:41 03/27/18 10:41 - Attending Attestation I examined this patient and my medical decision-making was reviewed with the Resident Physician Dr. Pascual. I agree with the documented findings, disposition and treatment plan as described except to the extent set forth below. Mr. Clark is a 78 y/o M who was on Lisnopril / HCTZ for HTN, also taking lasix for b/l LE edema was found to have hyponatremia by PCP, so pt was sent to ER for further work up. His Na @ 120. Pt denied any chest pain / SOB. He does c/ o nausea / loss of appetite. No recent weight loss Gen: A, A, O x 3 Chest: Diminished BS b/l, No wheezing, no crackles Heart: S1S2+ RRR No murmurs a/p 1. Acute severe hyponatremia due to dehydration / medication usage held Lasix + HCTZ IVF NS @ 100 cc/hr Q6hr Na goal of correction 05meq/hr not more than 8 meq/day 2. Acute pancreatitis 3. Pseudo pancreatic cyst NPO IV hydration trend on Lipase MRCP GI consulted - Time Spent With Patient Total time spent is greater than 50% in coordination of care (as documented) at patient's floor/unit and/or counseling patient:
[2018-03-27] MEDS ORDERED: *HR* Metoprolol 5 MG/5 ML VIAL IVP PRN (16:59)
[2018-03-27] MEDS ORDERED: Potassium Chloride 40 MEQ, Lidocaine 1% 2 ML in D5% in Water 500 ML IVPB ONE (17:01)
[2018-03-27] MEDS: 0.9 % Sodium Chloride 1,000 ML IVC SCH (17:20)
[2018-03-27] MEDS: Insulin LISPRO 300 UNITS/3 ML VIAL SQ SCH (17:22)
[2018-03-27] MEDS ORDERED: Pantoprazole 40 MG VIAL IVP SCH (18:00)
[2018-03-27] MEDS: *HR* Heparin 5,000 UNIT/ML VIAL SQ SCH (18:11)
[2018-03-27] MEDS: Fluticasone Propionate Nasal 50 MCG/SPRAY BOTTLE NS SCH (20:33)
[2018-03-27] MEDS ORDERED: Ketorolac 15 MG/ML VIAL IVP ONE (21:54)
--- NOTE | 2018-03-27 21:57 | Electrocardiograph Report ---
[facility] [place] Test Date: 2018-03-27 Pat Name: Rommel Clark Department: Room: 2A22 Gender: M [employer]: : 1940 Requested By: Segundo Jamison Order Number: [id number] Reading MD: José Roach Measurements Intervals [place] Rate: 96 P: 76 NE: 156 QRS: -15 QRSD: 90 T: 34 QT: 355 QTc: 449 Interpretive Statements Sinus rhythm Borderline left axis deviation Minimal ST depression, inferior leads Electronically Signed On 03-27-2018 21:56:17 EDT by José Roach
[2018-03-28] MEDS: Insulin LISPRO 300 UNITS/3 ML VIAL SQ SCH ×4 (00:03→17:52)
[2018-03-28 05:31] LABS: Basophils % 0.5 %; Eosinophils % 0.4 %; Hematocrit 37.7 % (37.5-50.1); Immature Granulocytes % 0.8 % (0-4); Lymphocytes # 1.9 K/mcL (0.6-4.6); Lymphocytes % 23.9 %; Mean Corpuscular HGB Conc 36.3 g/dL (31.6-35.5); Mean Corpuscular Hemoglobin 30.2 pg (28.0-33.3); Mean Corpuscular Volume 83.2 fL (83.0-100.0); Mean Platelet Volume 8.7 fL (9.4-12.4); Monocytes # 1.1 K/mcL (0.0-1.3); Monocytes % 14.4 %; Neutrophils # 4.7 K/mcL (1.6-8.9); Platelet Count 194 K/mcL (140-400); Red Blood Count 4.53 M/mcL (4.19-5.50); Red Cell Distribution Width 13.1 % (11.5-14.5)
[2018-03-28] MEDS: *HR* Heparin 5,000 UNIT/ML VIAL SQ SCH ×2 (05:39→17:51)
[2018-03-28 05:41] LABS: Hemoglobin 13.7 g/dL (12.9-16.9)
[2018-03-28 05:49] LABS: Alanine Aminotransferase 26 Units/L (7-52); Albumin 3.3 g/dL (3.5-5.7); Albumin/Globulin Ratio 1.7 (1.1-2.2); Alkaline Phosphatase 62 Units/L (34-104); Aspartate Amino Transferase 19 Units/L (13-39); BUN/Creatinine Ratio 25 (6-26); Bilirubin,Total 1.1 mg/dL (0.3-1.0); Blood Urea Nitrogen 18 mg/dL (8-23); Calcium 8.6 mg/dL (8.6-10.3); Carbon Dioxide 29 mEq/L (23-29); Chloride 91 mEq/L (98-107); Cholesterol 102 mg/dL (< 200); Glucose 94 mg/dL (70-105); HDL Cholesterol 51 mg/dL (40-59); LDL Cholesterol,Calculated 38 mg/dL (0-99); Magnesium 1.9 mg/dL (1.6-2.6); Osmolality,Calculated 264 (280-300); Potassium 3.6 mEq/L (3.5-5.1); Sodium 126 mEq/L (136-145); Total Protein 5.3 g/dL (6.4-8.9); Triglycerides 67 mg/dL (< 150); eGFR For Non-African Americans > 60 (> 60)
[2018-03-28] MEDS ORDERED: Ketorolac 15 MG/ML VIAL IVP PRN (08:45)
[2018-03-28] MEDS: 0.9 % Sodium Chloride 1,000 ML IVC SCH (08:55)
[2018-03-28] MEDS: Fluticasone Propionate Nasal 50 MCG/SPRAY BOTTLE NS SCH (08:57)
--- NOTE | 2018-03-28 09:26 | Internal Med Progress Note ---
<Benjamin Pascual R - Last Filed: 03/28/18 14:21> Hospitalist Progress Note - Encounter Date of Encounter: 03/28/18 Time of Encounter: 08:10 - Subjective Interval History: Patient feels well today. No overnight events. Denies any abdominal pain, nausea , vomiting, diarrhea, SOB, cough, or CP. Complains of leg pain secondary to sciatica. No leg swelling. Refused 2nd L of IVF last night due to fears of developing LE edema. - Exam Vitals: Temp Pulse Resp BP Pulse Ox 98.5 F 96 18 108/74 95 03/28/18 07:09 03/28/18 07:09 03/28/18 07:09 03/28/18 07:09 03/28/18 07:09 Exam: Gen: Awake, alert, sitting in bed, appears comfortable HEENT: NC/AT, moist mucous membranes CV: S1, S2, RRR, no MRG Resp: Clear to auscultation. No wheezes Abd: Soft, nontender, BS+, no masses Extrem: 2+ radial and PT pulses bilat. No LE edema - Assessment and Plan (1) Hyponatremia Current Visit: Yes Status: Acute Assessment and Plan: Na improved from 120 to 125 with 1L IV NS Likely hypovolemic hyponatremia secondary to diuretic use Patient does not look fluid overloaded, no LE edema, also does not drink water on a daily basis - Stop HCTZ and Lasix - 1 L IV NS 100ml/hr - Check sodium q6hrs - Replaced K - Monitor Is and Os - Consider echocardiogram to evaluate previous hx of LE edema (2) Pancreatic pseudocyst Current Visit: Yes Status: Acute Assessment and Plan: Incidental finding on CT Unclear etiology - no history of pancreatitis MRCP with MRI showing multiple cystic lesions, possible IPMNs vs hx of pancreatitis - recommended f/u in 6-12 months GI consulted - appreciate recommendations - recommend out-patient follow-up and possible EUS (3) Elevated lipase Current Visit: Yes Status: Acute Assessment and Plan: Improving. Lipase trending down MRI showing multiple cystic lesions, possible IPMNs Benign abdominal exam. Etiology unknown, suspect due to Lasix No hx of alcohol use, gallstones, or hypertriglyceridemia Continue IVF and symptom control GI consulted - appreciate recommendations Advance diet as tolerated to a diabetic diet (4) Sinus congestion Current Visit: Yes Status: Acute Assessment and Plan: Start Augmentin for 5 day course (5) Diabetes Current Visit: No Status: Chronic Assessment and Plan: Last A1C 7.2. On glyburide as outpatient. Allergic to metformin Continue low dose SSI (6) Hypertension Current Visit: No Status: Chronic Assessment and Plan: PRN metoprolol Resume Lisinopril when taking PO (7) Hx of prostatectomy Current Visit: Yes Status: Acute Assessment and Plan: s/p prostatectomy. PSA elevated. Recent imaging 03/20 showed sclerotic pelvic foci, consider metastatic disease Discussed case with Oncology - less concerned about sclerotic foci with no comment on recent abd/pelvis CT - recommended out-patient f/u with GI for EUS - recommened PET scan as an out-patient (8) Lumbar radiculopathy Current Visit: Yes Status: Chronic Assessment and Plan: Lumbar spondylosis on CT L4/5 PT/OT consult for evaluation and treatment Start Gabapentin - 300 mg daily, then increase to BID tomorrow, and TID in three days - another option to consider would be Cymbalta instead of the gabapentin Likely would benefit from a PM&R referral as an out-patient DVT Prophylaxis: Subq heparin - Summary of Assessment and Plan Summary of Assessment and Plan: Continued IV fluids and monitoring of sodium. Augmentin for sinuses. Gabapentin and PT/OT for sciatic pain. - Time Spent with Patient Total time spent is greater than 50% in coordination of care (as documented) at patient's floor/unit and/or counseling patient: Internal Medicine: Result - Labs CBC & Chem 7: 03/28/18 04:39 03/28/18 10:23 Labs: Short CBC 03/28/18 Range/Units 04:39 WBC 7.8 (4.3-11.1) K/mcL Hgb 13.7 D (12.9-16.9) g/dL Hct 37.7 (37.5-50.1) % Plt Count 194 (140-400) K/mcL Neutrophils # 4.7 (1.6-8.9) K/mcL BMP 03/27/18 03/27/18 03/28/18 17:03 23:01 04:39 Sodium 124 L 123 L 126 L Potassium 3.6 Chloride 91 L Carbon Dioxide 29 BUN 18 Creatinine 0.73 Glucose 94 Calcium 8.6 03/28/18 04:39 Sodium 125 L Potassium Chloride Carbon Dioxide BUN Creatinine Glucose Calcium Liver Function 03/28/18 Range/Units 04:39 Total Bilirubin 1.1 H (0.3-1.0) mg/dL AST 19 (13-39) Units/L ALT 26 (7-52) Units/L Alkaline Phosphatase 62 (34-104) Units/L Albumin 3.3 L (3.5-5.7) g/dL - Impressions Impressions Abdomen MRI 03/27/18 17:22 IMPRESSION: 1. Pancreatic cystic lesions are identified, the largest measuring up to 2.7 x 1.9 cm in the pancreatic body. These communicate with the pancreatic duct and are most suggestive of side-branch IPMNs. Findings could be related to stasis if there is a history of pancreatitis. Recommend follow-up MRI/MRCP in 6-12 months. 2. No biliary duct dilation or choledocholithiasis. 3. Mildly distended gallbladder. D/ / 03/28/2018 09:02:02 Emmy Gerard MD / mayuri Interpreting Provider: Emmy Greard MD Consult Discharge Plan - Plan Referrals: Buzz Sanchez MD [Primary Care Provider] - <BrentNikci Ashli - Last Filed: 03/28/18 17:03> Hospitalist Progress Note - Encounter Date of Encounter: 03/28/18 - Exam Vitals: Temp Pulse Resp BP Pulse Ox 97.7 F 88 18 160/81 97 03/28/18 16:16 03/28/18 16:16 03/28/18 16:16 03/28/18 16:16 03/28/18 16:16 - Summary of Assessment and Plan Summary of Assessment and Plan: I examined this patient and my medical decision-making was reviewed with the Resident Physician Dr. Pascual. I agree with the documented findings, disposition and treatment plan as described except to the extent set forth below. Sodium gradually increased with IV fluids. GI consulted for pseudocyst of pancreas. Lipase improving. No abdominal pain on exam and patient is in no acute distress. Continue supportive care with sodium monitoring. Follow-up GI recs. - Time Spent with Patient Total time spent is greater than 50% in coordination of care (as documented) at patient's floor/unit and/or counseling patient: Internal Medicine: Result - Labs CBC & Chem 7: 03/28/18 04:39 03/28/18 15:41 Labs: Short CBC 03/28/18 Range/Units 04:39 WBC 7.8 (4.3-11.1) K/mcL Hgb 13.7 D (12.9-16.9) g/dL Hct 37.7 (37.5-50.1) % Plt Count 194 (140-400) K/mcL Neutrophils # 4.7 (1.6-8.9) K/mcL BMP 03/27/18 03/27/18 03/28/18 17:03 23:01 04:39 Sodium 124 L 123 L 126 L Potassium 3.6 Chloride 91 L Carbon Dioxide 29 BUN 18 Creatinine 0.73 Glucose 94 Calcium 8.6 03/28/18 03/28/18 03/28/18 04:39 10:23 15:41 Sodium 125 L 128 L 127 L Potassium Chloride Carbon Dioxide BUN Creatinine Glucose Calcium Liver Function 03/28/18 Range/Units 04:39 Total Bilirubin 1.1 H (0.3-1.0) mg/dL AST 19 (13-39) Units/L ALT 26 (7-52) Units/L Alkaline Phosphatase 62 (34-104) Units/L Albumin 3.3 L (3.5-5.7) g/dL - Impressions Impressions Abdomen MRI 03/27/18 17:22 IMPRESSION: 1. Pancreatic cystic lesions are identified, the largest measuring up to 2.7 x 1.9 cm in the pancreatic body. These communicate with the pancreatic duct and are most suggestive of side-branch IPMNs. Findings could be related to stasis if there is a history of pancreatitis. Recommend follow-up MRI/MRCP in 6-12 months. 2. No biliary duct dilation or choledocholithiasis. 3. Mildly distended gallbladder. 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
--- NOTE | 2018-03-28 10:34 | Gastroenterology Consult Note ---
<Shyam Hinojosa Alison - Last Filed: 03/28/18 10:31> Date of Encounter: 03/28/18 Time of Encounter: 10:05 - Assessment and plan (1) Pancreatic pseudocyst Current Visit: Yes Status: Acute Assessment and plan: CT A/P shows 28 mm rounded fluid attenuating lesion associated with the body of the pancreas, calcifications are seen in this region suggesting previous pancreatitis. MRCP with pancreatic cystic lesions are are identified the largest measuring up to 2.7 x 1.9 cm in the pancreatic body, these communicate with the pancreatic duct and are most suggestive of side-branch IPMNs. Recommend follow-up MRI/MRCP in 6-12 months. Continue to monitor labs, follow up with Dr. Hinds as outpatient. Will consider EUS as outpatient. (2) Elevated lipase Current Visit: Yes Status: Acute Assessment and plan: Lipase 415 on admission, and 241 today. Continue IV fluids, pain control, and anti-emetics. - Time Spent With Patient Total time spent is greater than 50% in coordination of care (as documented) at patient's floor/unit and/or counseling patient: GI History of Present Illness - Data of Consult Patient: new to practice Consult date: 03/28/18 Requesting Physician: Adelaide May MD - Consult Narrative Reason for consult: Elevated lipase History of present illness: Mr. Clark is a 78 year old male with PMHx of DM, HTN, prostate cancer s/p prostatectomy, who presents with hyponatremia, He was recently admitted for sciatica and was found to be hyponatremic. IVF given with correction of sodium. He presented to his PCP for follow up on 03/27 and was found to be hyponatremic ( 120) and was sent to the ED. Patient usually does not drink any water throughout the day, he instead drinks 6 cans of pepsi during the day and 1 liter at night. Lipase was found to be elevated at 415. He complained of nausea , decreased appetite, and heartburn for 3 days prior to admission. He denies abdominal pain, nausea, vomiting, diarrhea, hematochezia, melena, or history of pancreatic problems. CT A/P shows 28 mm rounded fluid attenuating lesion associated with the body of the pancreas, calcifications are seen in this region suggesting previous pancreatitis. MRCP with pancreatic cystic lesions are are identified the largest measuring up to 2.7 x 1.9 cm in the pancreatic body, these communicate with the pancreatic duct and are most suggestive of side -branch IPMNs. Recommend follow-up MRI/MRCP in 6-12 months. Procedures: Colonoscopy 08/29/2008 Dr. Larkin: Tubular adenoma and hyperplastic polyp. NSAIDs: None Anticoagulation: None Past Med Surg Social Fam HX - Past Medical History Medical history: diabetes, hypertension Additional medical history: prostate cancer Psychiatric history: no psych history - Past Surgical History Surgical History: prostatectomy Additional surgical history: prostate surgery, hernia surgery, sinus surgery - Social History Smoking Status: Never smoker Smokeless Tobacco Status: No Alcohol use: none Drug use: none - Family History Brother Hx Family Genitourinary Disorders: Yes (prostate cancer) Father Hx Family Cardiac Disorders: Yes (CAD) Mother Hx Family Endocrine Disorder: Yes (diabetes) - Gastrointestinal Gastrointestinal: Present: as per HPI - Constitutional Constitutional: as per HPI - EENT Eyes: as per HPI Ears: Present: as per HPI Nose, mouth and throat: Present: as per HPI - Cardiovascular Cardiovascular ROS: Present: as per HPI - Respiratory Respiratory IM: Present: as per HPI - Genitourinary Genitourinary: Absent: change in color, Urinary frequency - Neurological ROS Neurological GI: Present: as per HPI - Hematologic/Lymphatic Hematologic/Lymphatic pediatric: Present: as per HPI - Musculoskeletal Musculoskeletal ROS GI: Present: as per HPI - Integumentary Integumentary GI: Present: as per HPI - Psychiatric ROS Psychiatric GI: Present: as per HPI - Endocrine Endocrine IM: Present: as per HPI - Constitutional Vitals: Temp Pulse Resp BP Pulse Ox 98.5 F 96 18 108/74 95 03/28/18 07:09 03/28/18 07:09 03/28/18 07:09 03/28/18 07:09 03/28/18 07:09 General appearance: Present: cooperative, A&O X 3, no acute distress, answers questions appropriately - Head Head exam: Present: atraumatic, normocephalic - Eye Eye exam: Present: normal appearance, sclera anicteric - ENT ENT exam: Present: mucous membranes dry - Neck Neck exam general surgery: Present: normal inspection, trachea midline - Respiratory Respiratory exam: Present: CTAB. Absent: rales, rhonchi, wheezes - Cardiovascular Cardiovascular exam: Present: RRR, +S1, +S2 - GI/Abdominal GI/Abdominal exam: Present: soft, no peritoneal signs. Absent: distended, firm , guarding, tenderness - Rectal Rectal exam: Present: deferred - Extremities Exam Extremities exam: Present: warm - Neurological Exam Neurological exam: Present: no focal deficits - Psychiatric Psychiatric exam: Present: normal affect, normal mood - Skin Skin exam: Present: dry, intact, normal color, warm Results - Labs CBC & Chem 7: 03/28/18 04:39 03/28/18 04:39 Labs: Last Result Calcium 8.6 mg/dL (8.6-10.3) 03/28/18 04:39 Triglycerides 67 mg/dL (< 150) 03/28/18 04:39 Entire Visit Hgb 13.7 g/dL (12.9-16.9) D 03/28/18 04:39 Hct 37.7 % (37.5-50.1) 03/28/18 04:39 Total Bilirubin 1.1 mg/dL (0.3-1.0) H 03/28/18 04:39 AST 19 Units/L (13-39) 03/28/18 04:39 ALT 26 Units/L (7-52) 03/28/18 04:39 Lipase 241 Units/L (11-82) H 03/28/18 04:39 - Impressions Impressions Abdomen MRI 03/27/18 17:22 IMPRESSION: 1. Pancreatic cystic lesions are identified, the largest measuring up to 2.7 x 1.9 cm in the pancreatic body. These communicate with the pancreatic duct and are most suggestive of side-branch IPMNs. Findings could be related to stasis if there is a history of pancreatitis. Recommend follow-up MRI/MRCP in 6-12 months. 2. No biliary duct dilation or choledocholithiasis. 3. Mildly distended gallbladder. D/ / 03/28/2018 09:02:02 Emmy Gerard MD / mayuri Interpreting Provider: Emmy Gerard MD Consult Discharge Plan - Plan Referrals: Buzz Sanchez MD [Primary Care Provider] - <LizetMary JoJames - Last Filed: 03/28/18 17:33> Date of Encounter: 03/28/18 Time of Encounter: 14:00 - Time Spent With Patient Total time spent is greater than 50% in coordination of care (as documented) at patient's floor/unit and/or counseling patient: GI History of Present Illness - Data of Consult Requesting Physician: Adelaide May MD - Consult Narrative History of present illness: Mr. Clark is a 78 year old male - Constitutional Vitals: Temp Pulse Resp BP Pulse Ox 97.7 F 88 18 160/81 97 03/28/18 16:16 03/28/18 16:16 03/28/18 16:16 03/28/18 16:16 03/28/18 16:16 Results - Labs CBC & Chem 7: 03/28/18 04:39 03/28/18 15:41 Labs: Last Result Calcium 8.6 mg/dL (8.6-10.3) 03/28/18 04:39 Triglycerides 67 mg/dL (< 150) 03/28/18 04:39 Entire Visit Hgb 13.7 g/dL (12.9-16.9) D 03/28/18 04:39 Hct 37.7 % (37.5-50.1) 03/28/18 04:39 Total Bilirubin 1.1 mg/dL (0.3-1.0) H 03/28/18 04:39 AST 19 Units/L (13-39) 03/28/18 04:39 ALT 26 Units/L (7-52) 03/28/18 04:39 Lipase 241 Units/L (11-82) H 03/28/18 04:39 - Impressions Impressions Abdomen MRI 03/27/18 17:22 IMPRESSION: 1. Pancreatic cystic lesions are identified, the largest measuring up to 2.7 x 1.9 cm in the pancreatic body. These communicate with the pancreatic duct and are most suggestive of side-branch IPMNs. Findings could be related to stasis if there is a history of pancreatitis. Recommend follow-up MRI/MRCP in 6-12 months. 2. No biliary duct dilation or choledocholithiasis. 3. Mildly distended gallbladder. D/ / 03/28/2018 09:02:02 Emmy Gerard MD / mayuri Interpreting Provider: Emmy Gerard MD - Attending Attestation I have personally performed a face to face evaluation on this patient. I have reviewed and agree with the care plan. History and Exam by me shows: pt seen at the bedside denies any abdominal pain , on examination abdomen is benign. Denies any weight loss no family history of pancreatic cancer. 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 The largest is close to it 3 cm. Recommendation: Patient imaging were reviewed and there are no worrisome features on the imaging but because of the size of the cyst close to 3 cm and pancreatitis he will need an EUS in about 4 weeks to assess the cyst and make sure there is no worrisome features
[2018-03-28] MEDS ORDERED: Acetaminophen 325 MG TABLET PO PRN (11:12)
[2018-03-28] MEDS ORDERED: Ondansetron ODT 4 MG TAB.RAPDIS SL PRN (11:13)
[2018-03-28] MEDS ORDERED: Gabapentin 300 MG CAPSULE PO ONE (13:59)
[2018-03-28] MEDS: Neosporin OINT 15 GM TUBE TP SCH (20:16)
[2018-03-28] MEDS: *HR* OxyCODONE/APAP 5/325 TABLET PO PRN (20:59)
[2018-03-28] MEDS ORDERED: Insulin LISPRO 300 UNITS/3 ML VIAL SQ SCH (21:00)
[2018-03-29] MEDS: *HR* OxyCODONE/APAP 5/325 TABLET PO PRN (02:54)
[2018-03-29 04:36] LABS: Basophils % 0.7 %; Eosinophils # 0.1 K/mcL (0.0-0.6); Eosinophils % 1.5 %; Hematocrit 38.5 % (37.5-50.1); Hemoglobin 13.6 g/dL (12.9-16.9); Immature Granulocytes % 0.7 % (0-4); Lymphocytes # 1.3 K/mcL (0.6-4.6); Lymphocytes % 21.9 %; Mean Corpuscular HGB Conc 35.3 g/dL (31.6-35.5); Mean Corpuscular Volume 84.8 fL (83.0-100.0); Mean Platelet Volume 8.2 fL (9.4-12.4); Monocytes # 0.8 K/mcL (0.0-1.3); Monocytes % 12.7 %; Neutrophils # 3.8 K/mcL (1.6-8.9); Platelet Count 169 K/mcL (140-400); Red Blood Count 4.54 M/mcL (4.19-5.50); Red Cell Distribution Width 13.1 % (11.5-14.5); Segmented Neutrophils % 62.5 %
[2018-03-29 04:55] LABS: BUN/Creatinine Ratio 21 (6-26); Blood Urea Nitrogen 14 mg/dL (8-23); Calcium 8.9 mg/dL (8.6-10.3); Carbon Dioxide 29 mEq/L (23-29); Chloride 96 mEq/L (98-107); Glucose 145 mg/dL (70-105); Lipase 177 Units/L (11-82); Osmolality,Calculated 271 (280-300); Potassium 4.3 mEq/L (3.5-5.1); Sodium 129 mEq/L (136-145); eGFR For Non-African Americans > 60 (> 60)
[2018-03-29] MEDS: *HR* Heparin 5,000 UNIT/ML VIAL SQ SCH (05:39)
[2018-03-29 07:52] VITALS: BP 162/93
[2018-03-29] MEDS ORDERED: Gabapentin 300 MG CAPSULE PO SCH (09:00)
[2018-03-29] MEDS: Insulin LISPRO 300 UNITS/3 ML VIAL SQ SCH ×2 (09:17→12:03)
[2018-03-29] MEDS: Neosporin OINT 15 GM TUBE TP SCH (09:19)
[2018-03-29] MEDS: Gabapentin 300 MG CAPSULE PO SCH ×2 (09:24→15:17)
--- NOTE | 2018-03-29 09:25 | Discharge Summary ---
- NOTES TO OUTPATIENT PROVIDER Notes to Outpatient Provider: - Repeat BMP in 2-3 days. - Reassess if patient needs diuretics. Reassess BP medications. - Follow-up with primary care physician, in regards to leg/back pain. Patient requested Percocet on discharge , but I did not feel it was appropriate in this setting. He will be discharged with gabapentin 300 mg TID, titrate as needed. PT/OT evaluated pt in hospital, no acute needs. - We are coordingating establishing a Nephrology appointment for hyponatremia. - Follow-up with GI for pancreatic pseudocysts. Orders not resulted at time of discharge: Pending orders 03/29/18 08:30 Cancer Antigen-GI ([facility] 19-9) Stat Date of Encounter: 03/29/18 Time of Encounter: 09:20 - Discharge Diagnosis (1) Hyponatremia Priority: Primary Status: Acute (2) Pancreatic pseudocyst Priority: Secondary Status: Acute (3) Elevated lipase Priority: Secondary Status: Acute (4) Hx of prostatectomy Priority: Secondary Status: Acute (5) Sinus congestion Priority: Secondary Status: Acute (6) Lumbar radiculopathy Priority: Secondary Status: Chronic (7) Bony sclerosis Priority: Secondary Status: Acute (8) Intractable low back pain Priority: Secondary Status: Acute (9) Lumbar canal stenosis Priority: Secondary Status: Acute Qualifiers: Neurogenic claudication status: unspecified Qualified Code(s): M48.061 - Spinal stenosis, lumbar region without neurogenic claudication (10) Diabetes Priority: Secondary Status: Chronic Qualifiers: Diabetes mellitus type: type 2 Diabetes mellitus detention insulin use: without detention use Diabetes mellitus complication status: without complication Qualified Code(s): E11.9 - Type 2 diabetes mellitus without complications (11) Hypertension Priority: Secondary Status: Chronic Qualifiers: Hypertension type: essential hypertension Qualified Code(s): I10 - Essential (primary) hypertension Hospital course: Mr. Clark is a 78 year old male with history of DM, HTN, prostate cancer s/p prostatectomy, who presents with hyponatremia. Patient was recently admitted 03/20 -03/21 for sciatica. He was found to be hyponatremic and given IVF with correction in Na. He was discharged with instructions to just take Lisinopril, but he continued to take Lisinopril-HCTZ instead. He also developed LE edema and was started on Lasix 20mg daily on 03/23, which increased to 20mg BID on . Despite being on lasix he reports that he does not have frequent urination. He presented to his PCP for follow up on 03/27 and was found to be hyponatremic ( 120) and was sent to the ED. Patient usually does not drink any water throughout the day, he instead drinks 6 cans of pepsi during the day and 1 liter at night. In the ED a comprehensive lab workup was ordered. He was found to have elevated lipase 415, and CT abdomen found pancreatic pseudocyst. Patient reports nausea, decreased appetitie, and heartburn for the 3 days prior to admission. He had no known history of pancreatic issues. Patient also complains of sinus congestion with foul smelling yellow mucous for the past 2 weeks and so he was started on Augmentin. In the ED his sodium was also 120 and so admitted for hyponatremia. He was given IV fluids cautiously. Lasix and HCTZ were held on admission. Sodium continued to improve to 129. Given his response to IV fluids, he was discharged home. We are arranging for outpatient Nephrology follow-up. GI saw patient and recommended outpatient follow-up. BP was unremarkable during admission. He had no signs of edema and he was hemodynamically stable. PT/OT saw patient and signed off as he has no acute findings and no acute needs. He will be discharged home with gabapentin 300 mg TID for pain. He will be discharged home with lisinopril alone, and no HCTZ, no Lasix. Patient verbalizes understanding of this. He states he has an appointment with primary care provider tomorrow. I advised to keep this visit. Follow-up with Nephrology for hyponatremia. Follow-up with GI for pancreatic pseudocyst. - Time Spent with Patient Total time spent providing and/or coordinating discharge services: - Discharge Medications Prescriptions: Amoxicillin/Clavulanate [Augmentin] 875 mg PO BIDWM #12 tablet Gabapentin [Neurontin] 300 mg PO TID PRN 7 Days #21 capsule PRN Reason: Pain Home Medications: glyBURIDE [GlyBURIDE] 2.5 mg PO BID 03/20/18 [History] Cyclobenzaprine [Flexeril] 10 mg PO TID #20 tablet 03/21/18 [Rx] Carvedilol 3.125 mg PO BID #60 tab 03/22/18 [Rx] Atorvastatin Calcium [Lipitor] 20 mg PO QPM 03/27/18 [History] Amoxicillin/Clavulanate [Augmentin] 875 mg PO BIDWM #12 tablet 03/29/18 [Rx] Gabapentin [Neurontin] 300 mg PO TID PRN 7 Days #21 capsule 03/29/18 [Rx] Lisinopril [Zestril] 20 mg PO DAILY #14 tablet 03/29/18 [Rx] Allergies/Adverse Reactions: 3 Allergy/AdvReac Type Severity Reaction Status Date / Time metformin AdvReac See Verified 10/05/15 10:41 Comments Date of admission: 03/27/18 14:50 Primary care physician: Buzz Sanchez MD Consults: 03/27/18 15:40 Consult to Gastroenterology [CONS] Routine Consulting Provider: Gastroenterology Ethan Reason for Consult: elevated lipase, pseudocyst Time Notified: 15:40 Call Completed: Yes 03/27/18 16:31 Consult to Pastoral Services [CONS] Routine Comment: Consult to [employer] [CONS] Routine Reason for SW Consult: for POA Discharging clinician: Mayco Kennedy - Constitutional Vitals: Temp Pulse Resp BP Pulse Ox 98.3 F 81 18 162/93 100 03/29/18 07:51 03/29/18 07:51 03/29/18 07:51 03/29/18 07:51 03/29/18 07:51 General appearance: Present: A&O X 3, no acute distress, answers questions appropriately - Head Head exam: Present: atraumatic, normocephalic - Eye Eye exam: Present: PERRL, conjuntiva pink, sclera anicteric Pupils: Present: PERRL - Neck Neck exam general surgery: Present: supple, trachea midline. Absent: lymphadenopathy - Respiratory Respiratory exam: Present: CTAB. Absent: accessory muscle use, rales, rhonchi, wheezes - Cardiovascular Cardiovascular exam: Present: RRR, +S1, +S2. Absent: diastolic murmur, gallop, rubs, systolic murmur - GI/Abdominal GI/Abdominal exam: Present: normal bowel sounds, soft, no peritoneal signs. Absent: distended, tenderness - Extremities Exam Extremities exam: Present: warm, radial pulses palpable and symmetrical. Absent : calf tenderness, cyanotic, pedal edema - Neurological Exam Neurological exam: Present: CN II-XII intact, oriented X3, no focal deficits. Absent: pronater drift, facial droop, speech deficit - Skin Skin exam: Present: dry, intact - Patient Status Disposition: Home, Self-Care Condition: Good Functional capacity at discharge: independent ambulation Overall status at discharge: patient is back to baseline - Discharge Instructions Follow Up With: Buzz Sanchez MD [Primary Care Provider] - Alek Nugent MD [Partnered Physician] - (Per family request please reshedule missed appointment at d/c) - Diet and Activity Activity: as per physical therapy Diet: advance to your usual diet
== END 2018-03-29 18:12 | disposition home or self-care (01) | DRG 640 ==
LOC: EMEROOARM 10:10 → ICNU 14:50 → 2ANU 18:00
PROVIDERS: ADMIT Family Medicine; ATTEND Family Medicine

== ENCOUNTER 2020-08-23 04:39 | Inpatient (IN) ==
[2020-08-23 05:56] LABS: Basophils % 0.5 %; Eosinophils % 0.5 %; Hematocrit 36.7 % (37.5-50.1); Hemoglobin 12.5 g/dL (12.9-16.9); Immature Granulocytes % 0.8 % (0-4); Lymphocytes # 0.7 K/mcL (0.6-4.6); Lymphocytes % 16.3 %; Mean Corpuscular HGB Conc 34.1 g/dL (31.6-35.5); Mean Corpuscular Hemoglobin 29.8 pg (28.0-33.3); Mean Corpuscular Volume 87.6 fL (83.0-100.0); Mean Platelet Volume 9.1 fL (9.4-12.4); Monocytes # 0.5 K/mcL (0.0-1.3); Monocytes % 11.3 %; Neutrophils # 2.8 K/mcL (1.6-8.9); Platelet Count 122 K/mcL (140-400); Red Blood Count 4.19 M/mcL (4.19-5.50); Red Cell Distribution Width 12.7 % (11.5-14.5); Segmented Neutrophils % 70.6 %
[2020-08-23 05:57] LABS: Bacteria,Urine Few per hpf (None-Few); Bilirubin,Urine Negative (Negative); Blood,Urine Trace (Negative); Clarity,Urine Clear (Clear); Color,Urine Colorless (Yellow); Glucose,Urine (UA) Normal (Normal); Ketones,Urine Negative (Negative); Leukocyte Esterase,Urine Negative (Negative); Nitrite,Urine Negative (Negative); PH,Urine 7.5 pH Units (5.0-8.0); Protein,Urine Negative (Neg-Trace); Urobilinogen,Urine Normal (Normal); WBC,Urine 0-3 per hpf (0-3)
[2020-08-23 06:16] LABS: BUN/Creatinine Ratio 13 (6-26); Blood Urea Nitrogen 7 mg/dL (8-23); Calcium 8.2 mg/dL (8.6-10.3); Carbon Dioxide 29 mEq/L (23-29); Chloride 93 mEq/L (98-107); Glucose 119 mg/dL (70-105); Osmolality,Calculated 269 (280-300); Potassium 2.6 mEq/L (3.5-5.1); Sodium 130 mEq/L (136-145); eGFR For African Americans > 60 (> 60); eGFR For Non-African Americans > 60 (> 60)
[2020-08-23] MEDS ORDERED: Potassium Chloride 40 MEQ, Lidocaine 1% 2 ML in 0.9 % Sodium Chloride 500 ML IVPB ONE (07:02)
[2020-08-23] MEDS ORDERED: Naloxone 0.4 MG/ML INJ IVP PRN (07:27)
[2020-08-23] MEDS ORDERED: Dextrose Gel 15 GM/37.5 ML TUBE PO PRN ×2 (07:28)
[2020-08-23] MEDS ORDERED: D5% in Water 1,000 ML IVC PRN (07:28)
[2020-08-23] MEDS ORDERED: *HR* Dextrose 50 % in Water (Vial) 50 ML VIAL IVP PRN (07:28)
[2020-08-23] MEDS ORDERED: 0.9 % Sodium Chloride 1,000 ML IVC SCH (07:30)
[2020-08-23 08:09] LABS: Magnesium 1.3 mg/dL (1.6-2.6)
[2020-08-23] MEDS: Insulin LISPRO 300 UNITS/3 ML VIAL SUBQ SCH ×3 (09:36→16:14)
[2020-08-23] MEDS: Acetaminophen 325 MG TABLET PO PRN (16:14)
[2020-08-23] MEDS: Ondansetron 4 MG/2 ML VIAL IVP PRN (16:14)
[2020-08-23] MEDS ORDERED: Melatonin 3 MG TABLET PO PRN (18:10)
[2020-08-24 03:21] LABS: BUN/Creatinine Ratio 14 (6-26); Blood Urea Nitrogen 9 mg/dL (8-23); Calcium 7.8 mg/dL (8.6-10.3); Carbon Dioxide 29 mEq/L (23-29); Chloride 99 mEq/L (98-107); Glucose 116 mg/dL (70-105); Magnesium 1.9 mg/dL (1.6-2.6); Osmolality,Calculated 280 (280-300); Potassium 3.2 mEq/L (3.5-5.1); Sodium 135 mEq/L (136-145); eGFR For African Americans > 60 (> 60); eGFR For Non-African Americans > 60 (> 60)
[2020-08-24] MEDS: predniSONE 10 MG TABLET PO SCH ×2 (04:04→04:09)
[2020-08-24] MEDS: *HR* Enoxaparin 40 MG/0.4 ML SYRINGE SQ SCH (04:08)
[2020-08-24] MEDS: ZYTIGA 250 MG PO SCH (04:09)
[2020-08-24] MEDS: Ondansetron 4 MG/2 ML VIAL IVP PRN (04:37)
[2020-08-24] MEDS: Acetaminophen 325 MG TABLET PO PRN (07:21)
[2020-08-24] MEDS: carvediloL 25 MG TABLET PO SCH ×2 (07:21→17:15)
[2020-08-24] MEDS: Insulin LISPRO 300 UNITS/3 ML VIAL SUBQ SCH ×3 (07:22→17:19)
[2020-08-24] MEDS ORDERED: Benzonatate 100 MG CAPSULE PO PRN (08:37)
[2020-08-24 09:31] LABS: Basophils % 0.3 %; Eosinophils % 0.3 %; Hemoglobin 13.1 g/dL (12.9-16.9); Immature Granulocytes % 0.6 % (0-4); Lymphocytes # 0.5 K/mcL (0.6-4.6); Lymphocytes % 13.7 %; Mean Corpuscular HGB Conc 33.6 g/dL (31.6-35.5); Mean Corpuscular Hemoglobin 29.7 pg (28.0-33.3); Mean Corpuscular Volume 88.4 fL (83.0-100.0); Mean Platelet Volume 8.9 fL (9.4-12.4); Monocytes # 0.3 K/mcL (0.0-1.3); Monocytes % 7.9 %; Neutrophils # 2.5 K/mcL (1.6-8.9); Platelet Count 131 K/mcL (140-400); Red Blood Count 4.41 M/mcL (4.19-5.50); Red Cell Distribution Width 12.7 % (11.5-14.5); Segmented Neutrophils % 77.2 %; White Blood Count 3.3 K/mcL (4.3-11.1)
[2020-08-24] MEDS: Calcium Gluconate 1gm/50mL 1 GM/50 ML BAG IVPB SCH ×2 (09:32→11:24)
[2020-08-24] MEDS: Artificial Tears SOLN 15 ML BOTTLE BOTH EYES SCH ×2 (09:32→22:14)
[2020-08-24] MEDS: Chlorhexidine Rinse 15 ML MOUTHWASH MM SCH ×2 (09:33→21:49)
[2020-08-24] MEDS: Furosemide 20 MG/2 ML VIAL IVP SCH (09:33)
[2020-08-24] MEDS: Multivit/Ca/Min/Fe/FA 1 TAB TABLET PO SCH (09:33)
[2020-08-24 09:43] LABS: INR 1.2; Prothrombin Time 13.7 Seconds (9.4-12.1)
[2020-08-24 09:54] LABS: Albumin 3.3 g/dL (3.5-5.7); Albumin/Globulin Ratio 1.5 (1.1-2.2); Bilirubin,Direct 0.1 mg/dL (0.0-0.2); Bilirubin,Indirect 0.5 mg/dL (0.0-1.0); Bilirubin,Total 0.6 mg/dL (0.3-1.0); Globulin 2.2 g/dL (2.4-3.5); Phosphorous 2.6 mg/dL (2.7-4.5); Total Protein 5.5 g/dL (6.4-8.9)
[2020-08-24] MEDS: Saline Nasal Spray 44 ML BOTTLE NS SCH ×5 (09:56→23:07)
[2020-08-24] MEDS: Ipratropium 1 PUFF INHALER IH SCH ×3 (11:09→21:17)
[2020-08-24] MEDS: polyethylene glycoL 3350 17 GM POWD.PACK PO SCH (17:55)
[2020-08-24] MEDS ORDERED: Insulin LISPRO 300 UNITS/3 ML VIAL SUBQ SCH (22:30)
[2020-08-25 01:11] LABS: Basophils % 0.3 %; Hematocrit 37.6 % (37.5-50.1); Immature Granulocytes % 0.5 % (0-4); Lymphocytes # 0.6 K/mcL (0.6-4.6); Lymphocytes % 15.2 %; Mean Corpuscular HGB Conc 34.6 g/dL (31.6-35.5); Mean Corpuscular Hemoglobin 30.3 pg (28.0-33.3); Mean Corpuscular Volume 87.6 fL (83.0-100.0); Mean Platelet Volume 9.1 fL (9.4-12.4); Monocytes # 0.4 K/mcL (0.0-1.3); Monocytes % 10.7 %; Neutrophils # 2.8 K/mcL (1.6-8.9); Platelet Count 144 K/mcL (140-400); Red Blood Count 4.29 M/mcL (4.19-5.50); Red Cell Distribution Width 12.4 % (11.5-14.5); Segmented Neutrophils % 73.3 %; White Blood Count 3.8 K/mcL (4.3-11.1)
[2020-08-25 01:34] LABS: Alanine Aminotransferase 32 Units/L (7-52); Albumin 3.2 g/dL (3.5-5.7); Albumin/Globulin Ratio 1.5 (1.1-2.2); Alkaline Phosphatase 56 Units/L (34-104); Aspartate Amino Transferase 25 Units/L (13-39); BUN/Creatinine Ratio 25 (6-26); Bilirubin,Total 0.5 mg/dL (0.3-1.0); Blood Urea Nitrogen 17 mg/dL (8-23); C-Reactive Protein 51 mg/L (Less than 10); Calcium 8.3 mg/dL (8.6-10.3); Carbon Dioxide 27 mEq/L (23-29); Chloride 95 mEq/L (98-107); Globulin 2.2 g/dL (2.4-3.5); Glucose 305 mg/dL (70-105); Lactate Dehydrogenase 197 Units/L (140-271); Magnesium 1.7 mg/dL (1.6-2.6); Osmolality,Calculated 285 (280-300); Phosphorous 2.6 mg/dL (2.7-4.5); Potassium 3.5 mEq/L (3.5-5.1); Sodium 131 mEq/L (136-145); Total Protein 5.4 g/dL (6.4-8.9); eGFR For African Americans > 60 (> 60); eGFR For Non-African Americans > 60 (> 60)
[2020-08-25 01:51] LABS: Ferritin 703 ng/mL (20-250)
[2020-08-25] MEDS: Ipratropium 1 PUFF INHALER IH SCH ×2 (03:22→11:11)
[2020-08-25] MEDS ORDERED: hydrALAZINE 25 MG TABLET PO ONE (03:58)
[2020-08-25] MEDS: ZYTIGA 250 MG PO SCH (04:28)
[2020-08-25] MEDS: *HR* Enoxaparin 40 MG/0.4 ML SYRINGE SQ SCH (04:28)
[2020-08-25] MEDS: Saline Nasal Spray 44 ML BOTTLE NS SCH ×3 (05:01→14:06)
[2020-08-25 07:05] VITALS: BP 169/83
[2020-08-25 07:46] LABS: Estimated Average Glucose 220 mg/dl; Hemoglobin A1C 9.3 %
[2020-08-25] MEDS: Insulin LISPRO 300 UNITS/3 ML VIAL SUBQ SCH ×2 (08:49→11:47)
[2020-08-25] MEDS: carvediloL 25 MG TABLET PO SCH (08:50)
[2020-08-25] MEDS: Chlorhexidine Rinse 15 ML MOUTHWASH MM SCH (08:52)
[2020-08-25] MEDS: Furosemide 20 MG/2 ML VIAL IVP SCH (08:53)
[2020-08-25] MEDS: polyethylene glycoL 3350 17 GM POWD.PACK PO SCH (08:54)
[2020-08-25] MEDS: Multivit/Ca/Min/Fe/FA 1 TAB TABLET PO SCH (08:54)
[2020-08-25] MEDS ORDERED: amLODIPine 5 MG TABLET PO SCH (09:00)
[2020-08-25] MEDS: Artificial Tears SOLN 15 ML BOTTLE BOTH EYES SCH (10:00)
[2020-08-25] MEDS: Calcium Gluconate 1gm/50mL 1 GM/50 ML BAG IVPB SCH ×2 (12:43→14:03)
== END 2020-08-25 17:25 | disposition home or self-care (01) | DRG 177 ==
LOC: EMEROOARM 04:39 → 3BNU 04:39 → SUATTDRO 07:33 → 3BNU 08:31
PROVIDERS: ADMIT Internal Medicine; ATTEND Internal Medicine

== ENCOUNTER 2020-10-23 19:57 | Observation (INO) ==
[2020-10-23 21:17] LABS: Basophils # 0.1 K/mcL (0.0-0.2); Eosinophils # 0.1 K/mcL (0.0-0.6); Eosinophils % 1.4 %; Hematocrit 41.3 % (37.5-50.1); Hemoglobin 13.9 g/dL (12.9-16.9); Immature Granulocytes % 0.6 % (0-4); Lymphocytes # 2.2 K/mcL (0.6-4.6); Lymphocytes % 22.4 %; Mean Corpuscular HGB Conc 33.7 g/dL (31.6-35.5); Mean Corpuscular Hemoglobin 30.2 pg (28.0-33.3); Mean Corpuscular Volume 89.8 fL (83.0-100.0); Monocytes # 1.1 K/mcL (0.0-1.3); Monocytes % 10.7 %; Neutrophils # 6.3 K/mcL (1.6-8.9); Platelet Count 197 K/mcL (140-400); Red Cell Distribution Width 13.3 % (11.5-14.5); Segmented Neutrophils % 63.9 %; White Blood Count 9.8 K/mcL (4.3-11.1)
[2020-10-23 21:35] LABS: BUN/Creatinine Ratio 21 (6-26); Blood Urea Nitrogen 15 mg/dL (8-23); Calcium 9.4 mg/dL (8.6-10.3); Carbon Dioxide 25 mEq/L (23-29); Chloride 100 mEq/L (98-107); Glucose 160 mg/dL (70-105); Osmolality,Calculated 282 (280-300); Potassium 3.8 mEq/L (3.5-5.1); Sodium 134 mEq/L (136-145); Troponin I 0.04 ng/mL (< 0.04); eGFR For African Americans > 60 (> 60); eGFR For Non-African Americans > 60 (> 60)
[2020-10-23] MEDS: DilTIAZem 50 MG/50 ML IV.SOLN IVC SCH (21:46)
[2020-10-23] MEDS ORDERED: *HR* Heparin 5,000 UNIT/ML VIAL IVP PRN ×2 (22:58)
[2020-10-23] MEDS ORDERED: *HR* Heparin 5,000 UNIT/ML VIAL IVP ONE (22:58)
[2020-10-23] MEDS ORDERED: Heparin 25,000UNIT/250ML 1/2NS 25,000 UNIT/250 ML IV.SOLN IVC SCH (23:00)
[2020-10-23] MEDS ORDERED: Melatonin 3 MG TABLET PO PRN (23:33)
[2020-10-23] MEDS ORDERED: Naloxone 0.4 MG/ML INJ IVP PRN (23:33)
[2020-10-23] MEDS ORDERED: Ondansetron 4 MG/2 ML VIAL IVP PRN (23:33)
[2020-10-23] MEDS ORDERED: Acetaminophen 325 MG TABLET PO PRN (23:33)
[2020-10-24] MEDS ORDERED: *HR* Dextrose 50 % in Water (Vial) 50 ML VIAL IVP PRN
[2020-10-24] MEDS ORDERED: Dextrose Gel 15 GM/37.5 ML TUBE PO PRN ×2
[2020-10-24] MEDS ORDERED: D5% in Water 1,000 ML IVC PRN
[2020-10-24] MEDS ORDERED: Perflutren Lipid Microsphere 1.3 ML in 0.9 % Sodium Chloride 8.7 ML IVP PRN (00:08)
[2020-10-24] MEDS: Insulin LISPRO 300 UNITS/3 ML VIAL SUBQ SCH ×2 (00:38→05:48)
[2020-10-24 03:25] LABS: Hematocrit 36.2 % (37.5-50.1); Hemoglobin 11.9 g/dL (12.9-16.9); Mean Corpuscular HGB Conc 32.9 g/dL (31.6-35.5); Mean Corpuscular Hemoglobin 30.1 pg (28.0-33.3); Mean Corpuscular Volume 91.4 fL (83.0-100.0); Mean Platelet Volume 9.6 fL (9.4-12.4); Platelet Count 153 K/mcL (140-400); Red Blood Count 3.96 M/mcL (4.19-5.50); Red Cell Distribution Width 13.2 % (11.5-14.5); White Blood Count 7.3 K/mcL (4.3-11.1)
[2020-10-24 03:42] LABS: BUN/Creatinine Ratio 25 (6-26); Blood Urea Nitrogen 17 mg/dL (8-23); Calcium 8.8 mg/dL (8.6-10.3); Carbon Dioxide 27 mEq/L (23-29); Chloride 103 mEq/L (98-107); Glucose 110 mg/dL (70-105); Osmolality,Calculated 284 (280-300); Potassium 3.3 mEq/L (3.5-5.1); Sodium 136 mEq/L (136-145); eGFR For African Americans > 60 (> 60); eGFR For Non-African Americans > 60 (> 60)
[2020-10-24] MEDS: (Abiraterone Acetate [Zytiga] 250 MG Tablet) PO SCH ×2 (05:49→05:53)
[2020-10-24] MEDS: DilTIAZem 50 MG/50 ML IV.SOLN IVC SCH (05:57)
[2020-10-24] MEDS ORDERED: predniSONE 10 MG TABLET PO SCH (06:00)
[2020-10-24] MEDS ORDERED: Potassium Chloride Elixir 20 MEQ/15 ML UDC PO ONE (06:06)
[2020-10-24] MEDS ORDERED: carvediloL 25 MG TABLET PO SCH (08:00)
[2020-10-24] MEDS ORDERED: Regadenoson 0.4 MG/5 ML SYRINGE IVP ONE (08:33)
[2020-10-24] MEDS ORDERED: DilTIAZem CD (24hr) 120 MG CAP.ER.24H PO SCH (09:00)
[2020-10-24] MEDS ORDERED: lisinopriL 20 MG TABLET PO SCH ×2 (09:00→10:45)
[2020-10-24 09:06] LABS: Troponin I < 0.03 ng/mL (< 0.04)
[2020-10-24] MEDS ORDERED: Apixaban 5 MG TABLET PO SCH (09:30)
[2020-10-24 09:46] LABS: Magnesium 1.6 mg/dL (1.6-2.6)
[2020-10-24] MEDS ORDERED: Magnesium Oxide 400 MG TABLET PO ONE (11:15)
[2020-10-24] MEDS ORDERED: Insulin LISPRO 300 UNITS/3 ML VIAL SUBQ SCH ×2 (11:30→21:00)
[2020-10-24 12:14] VITALS: BP 136/70
[2020-10-25] MEDS ORDERED: Aspirin Enteric Coated 81 MG Tablet PO SCH (09:00)
== END 2020-10-24 13:25 | disposition home or self-care (01) ==
LOC: 2ANU 19:57 → EMEROOARM 19:57 → 2ANU 23:23
PROVIDERS: ADMIT Internal Medicine; ATTEND Internal Medicine